=== PATIENT | female | born 1980 | race Caucasian/White ===

== ENCOUNTER 2016-10-22 13:48 | Emergency (ER) | payer OTHER, SELFPAY ==
[~2016-10-22] VITALS: Ht 162.6 cm; Wt 71.6 kg
[~2016-10-22 13:48] MED LIST: ACET300T PO; AMBI5TAB PO; EFFE75CA75 PO; IBUP80TA PO; ORTHDIS TD; XULA1DIS TD; [UNRECOGNIZED DRUG - CODE] PO; effexor xr PO
[2016-10-22] MEDS ORDERED: BENA25CA4 PO (13:57)
[2016-10-22] MEDS ORDERED: ULTR50TA8 PO (15:55)
--- NOTE | 2016-10-22 15:59 | REP ---
RIGHT LOWER EXTREMITY DUPLEX VEINS: HISTORY: Right leg swelling. There are no filling defects in the deep venous system. The deep venous system is patent. A fluid collection is present in the distal lateral thigh. This measures 12.1 x 3.7 x 4.5 cm and is most consistent with a hematoma. IMPRESSION: 1. There is no deep venous thrombosis. 2. There is a fluid collection in the distal lateral thigh measuring 12.1 cm in maximum dimension most consistent with a hematoma. Signed by Michael Myrick MD 10/22/2016 03:59 P
[2016-10-22 16:02] VITALS: BP 175/99
== END 2016-10-22 16:16 | disposition home or self-care (01) ==
LOC: M ED 13:48
DX: S80.11XA Contusion of right lower leg, initial encounter (principal); Y92.410 Unspecified street and highway as the place of occurrence of the external cause; Y93.89 Activity, other specified; Y99.8 Other external cause status; K58.9 Irritable bowel syndrome, unspecified; F41.9 Anxiety disorder, unspecified; F32.9 Major depressive disorder, single episode, unspecified; Z79.899 Other long term (current) drug therapy; Z88.8 Allergy status to other drugs, medicaments and biological substances

== ENCOUNTER 2016-12-01 14:02 | Emergency (ER) | payer MEDICAID, SELFPAY ==
[~2016-12-01] VITALS: Ht 162.6 cm; Wt 75.0 kg
[~2016-12-01 14:02] MED LIST changes: +BENA25CA4 PO; +ULTR50TA8 PO
[2016-12-01] MEDS ORDERED: IBUP-1022 PO (14:17)
[2016-12-01 16:29] LABS: BASO # 0.1 K/mm3 (0.0-0.2); EOS # 0.1 K/mm3 (0.0-0.50); EOS % 2.1 % (0.0-3.0); LARGE UNSTAINED CELL # 0.1 K/mm3 (0.0-0.4); LARGE UNSTAINED CELL % 1.6 % (0.0-4.0); LYMPH # 1.6 K/mm3 (1.5-4.5); LYMPH % 22.1 % (24.0-44.0); MEAN CORPUSCULAR HEMOGLOBIN 35.7 pg (27.0-33.0); MEAN CORPUSCULAR VOLUME 104.8 fl (80.0-96.0); MONO # 0.5 K/mm3 (0.0-0.8); MONO % 7.7 % (0.0-5.0); NEUTROPHILS # 4.4 K/mm3 (1.8-7.7); NEUTROPHILS % 65.6 % (36.0-66.0); PLATELET COUNT, AUTOMATED 172 k/mm3 (150-450); WHITE BLOOD COUNT 6.7 K/mm3 (4.0-10.0)
--- NOTE | 2016-12-01 16:48 | REP ---
Pelvic sonogram: History: Left-sided pelvic pain. Findings: Transabdominal and transvaginal scanning are performed. Uterine dimensions are normal at 6.3 x 3.3 x 4.5 cm. Endometrial echo 0.7 cm thick. No focal uterine mass is seen. There is a trace of cul-de-sac fluid. The right ovary dimensions are 2.9 x 2.0 x 3.1 cm. There is a paraovarian cyst in the right adnexa measuring 2.0 x 1.1 x 1.5 cm. The left ovary measures 3.0 x 2.3 x 3.0 cm. It contains a 2.2 cm follicle. Impression: 2.0 cm paraovarian cyst in the right adnexa. 2.2 cm dominant follicle cyst in the left ovary. Normal Doppler flow observed bilaterally in the ovaries. Otherwise negative. Signed by Kurt Holloway MD 12/01/2016 05:25 P
[2016-12-01 16:51] LABS: ANION GAP 9 MEQ/L (8-16); BLOOD UREA NITROGEN 9 MG/DL (7-18); CALCIUM LEVEL 9.1 MG/DL (8.5-10.1); CARBON DIOXIDE LEVEL 28 MEQ/L (21-32); CHLORIDE LEVEL 101 MEQ/L (98-107); GLOMERULAR FILTRATION RATE > 60.0 (>60); GLUCOSE, FASTING 103 MG/DL (70-105); POTASSIUM SERUM 4.2 MEQ/L (3.5-5.1); SODIUM LEVEL 138 MEQ/L (136-145)
[2016-12-01 17:37] VITALS: BP 152/96
[2016-12-05 00:07] LABS: Lyme Disease IgG/IgM Antibodie <0.91 ISR (0.00-0.90); Lyme Disease IgM Ab Quantitati <0.80 index (0.00-0.79)
== END 2016-12-01 17:39 | disposition home or self-care (01) ==
LOC: M ED 14:02
DX: M35.3 Polymyalgia rheumatica (principal); N83.02 Follicular cyst of left ovary; N83.291 Other ovarian cyst, right side; F41.9 Anxiety disorder, unspecified; F32.9 Major depressive disorder, single episode, unspecified; F17.200 Nicotine dependence, unspecified, uncomplicated; Z79.899 Other long term (current) drug therapy; Z88.8 Allergy status to other drugs, medicaments and biological substances

== ENCOUNTER → 2017-04-14 | Outpatient (CLI) | payer MEDICAID | LOC: M OUTALCOH 11:34 | DX: F10.10 Alcohol abuse, uncomplicated (principal) ==

== ENCOUNTER 2017-05-05 11:10 | Outpatient (RCR) | payer MEDICAID | END 2017-05-19 | LOC: M OUTALCOH 11:10 | DX: F10.10 Alcohol abuse, uncomplicated (principal); F17.200 Nicotine dependence, unspecified, uncomplicated ==

== ENCOUNTER 2017-05-24 09:56 | Outpatient (RCR) | payer MEDICAID | END 2017-06-19 | LOC: M OUTALCOH 05-25 16:00 | DX: F10.10 Alcohol abuse, uncomplicated (principal); F17.200 Nicotine dependence, unspecified, uncomplicated ==

== ENCOUNTER 2017-06-28 14:00 | Outpatient (RCR) | payer MEDICAID | END 2017-07-19 | LOC: M OUTALCOH 07-05 14:00 | DX: F10.10 Alcohol abuse, uncomplicated (principal); F17.200 Nicotine dependence, unspecified, uncomplicated ==

== ENCOUNTER → 2017-07-22 | Outpatient (REF) | payer OTHER ==
[2017-07-22 12:04] LABS: BASO % 0.5 % (0.0-1.0); EOS # 0.1 10^3/uL (0.0-0.50); EOS % 1.3 % (0.0-3.0); HEMATOCRIT 42.5 % (36.0-47.0); HEMOGLOBIN 14.6 g/dl (12.0-15.5); IMMATURE GRANULOCYTE % 0.6 % (0-3.0); LYMPH % 22.9 % (24.0-44.0); MEAN CORPUSCULAR HGB CONC 34.4 g/dl (32.0-36.5); MEAN CORPUSCULAR VOLUME 96.2 fl (80.0-96.0); MONO # 1.1 10^3/uL (0.0-0.8); MONO % 13.1 % (0.0-5.0); NEUTROPHILS # 5.3 10^3/uL (1.8-7.7); NEUTROPHILS % 61.6 % (36.0-66.0); PLATELET COUNT, AUTOMATED 221 10^3/uL (150-450); RED BLOOD COUNT 4.42 10^6/uL (4.00-5.40); RED CELL DISTRIBUTION WIDTH 13.4 % (11.5-14.5); WHITE BLOOD COUNT 8.6 10^3/uL (4.0-10.0)
[2017-07-22 12:29] LABS: ALBUMIN 4.1 GM/DL (3.2-5.2); ALBUMIN/GLOBULIN RATIO 1.11 (1.00-1.93); ALKALINE PHOSPHATASE 50 U/L (45-117); ALT/SGPT 17 U/L (12-78); ANION GAP 6 MEQ/L (8-16); AST/SGOT 13 U/L (7-37); BILIRUBIN,TOTAL 0.8 MG/DL (0.2-1.0); BLOOD UREA NITROGEN 12 MG/DL (7-18); CALCIUM LEVEL 9.1 MG/DL (8.5-10.1); CARBON DIOXIDE LEVEL 30 MEQ/L (21-32); CHLORIDE LEVEL 105 MEQ/L (98-107); CREATININE FOR GFR 0.73 MG/DL (0.55-1.30); GLOMERULAR FILTRATION RATE > 60.0 (>60); GLUCOSE, FASTING 91 MG/DL (70-100); POTASSIUM SERUM 4.1 MEQ/L (3.5-5.1); SODIUM LEVEL 141 MEQ/L (136-145); TOTAL PROTEIN 7.8 GM/DL (6.4-8.2)
== END ==
LOC: M SFHCPLAZ 10:23
DX: J06.9 Acute upper respiratory infection, unspecified (principal); I10 Essential (primary) hypertension

== ENCOUNTER 2017-07-26 08:42 | Outpatient (RCR) | payer MEDICAID | END 2017-08-19 | LOC: M OUTALCOH 07-27 16:00 | DX: F10.10 Alcohol abuse, uncomplicated (principal); F17.200 Nicotine dependence, unspecified, uncomplicated ==

== ENCOUNTER → 2017-08-24 | Outpatient (CLI) | payer MEDICAID | LOC: M WUC 13:14 | DX: S90.32XA Contusion of left foot, initial encounter (principal); X58.XXXA Exposure to other specified factors, initial encounter; Y92.9 Unspecified place or not applicable | CPT/HCPCS: 73630 ==

== ENCOUNTER 2017-08-30 10:40 | Outpatient (RCR) | payer MEDICAID | END 2017-09-18 | LOC: M OUTALCOH 09-15 10:00 | DX: F10.10 Alcohol abuse, uncomplicated (principal); F17.200 Nicotine dependence, unspecified, uncomplicated ==

== ENCOUNTER 2017-09-28 12:24 | Emergency (ER) | payer OTHER, MEDICAID ==
[2017-09-28] MEDS: METHOCARBAMOL 750 MG TAB PO (15:15)
[2017-09-28] MEDS: PERCOCET 5MG/325MG TAB PO (15:16)
== END 2017-09-28 16:19 | disposition home or self-care (01) ==
LOC: M ED 12:24
DX: M54.9 Dorsalgia, unspecified (principal); G89.29 Other chronic pain; F41.9 Anxiety disorder, unspecified; F32.9 Major depressive disorder, single episode, unspecified; K21.9 Gastro-esophageal reflux disease without esophagitis; K58.9 Irritable bowel syndrome, unspecified; F17.210 Nicotine dependence, cigarettes, uncomplicated; Z88.8 Allergy status to other drugs, medicaments and biological substances; Z79.899 Other long term (current) drug therapy
CPT/HCPCS: 99283

== ENCOUNTER 2017-09-29 11:20 | Outpatient (RCR) | payer MEDICAID | END 2017-10-19 | LOC: M OUTALCOH 10-13 10:00 | DX: F10.10 Alcohol abuse, uncomplicated (principal); F17.200 Nicotine dependence, unspecified, uncomplicated ==

== ENCOUNTER → 2017-10-19 | Outpatient (REF) | payer OTHER ==
[2017-10-19 13:09] LABS: BASO % 0.5 % (0.0-1.0); EOS # 0.1 10^3/uL (0.0-0.50); EOS % 1.5 % (0.0-3.0); HEMATOCRIT 45.3 % (36.0-47.0); HEMOGLOBIN 15.2 g/dl (12.0-15.5); IMMATURE GRANULOCYTE % 0.8 % (0-3.0); LYMPH # 1.6 10^3/uL (1.5-4.5); LYMPH % 24.3 % (24.0-44.0); MEAN CORPUSCULAR HEMOGLOBIN 34.1 pg (27.0-33.0); MEAN CORPUSCULAR HGB CONC 33.6 g/dl (32.0-36.5); MEAN CORPUSCULAR VOLUME 101.6 fl (80.0-96.0); MONO # 0.8 10^3/uL (0.0-0.8); MONO % 12.3 % (0.0-5.0); NEUTROPHILS % 60.6 % (36.0-66.0); PLATELET COUNT, AUTOMATED 167 10^3/uL (150-450); RED BLOOD COUNT 4.46 10^6/uL (4.00-5.40); RED CELL DISTRIBUTION WIDTH 12.2 % (11.5-14.5); RETIC HEMOGLOBIN EQUIVALENT 39.6 pg (24-36); RETICULOCYTE # 50.8 10^9/L (17-77); RETICULOCYTE % 1.1 % (0.5-1.5); WHITE BLOOD COUNT 6.6 10^3/uL (4.0-10.0)
[2017-10-19 13:19] LABS: HEMATOCRIT 45.3 % (36.0-47.0)
[2017-10-19 13:29] LABS: TOTAL 25(OH) VITAMIN D 31.4 NG/ML (30.0-100.0)
[2017-10-19 13:30] LABS: VITAMIN B12 LEVEL 337 PG/ML (247-911)
[2017-10-19 13:35] LABS: ALBUMIN 3.6 GM/DL (3.2-5.2); ALBUMIN/GLOBULIN RATIO 1.03 (1.00-1.93); ALKALINE PHOSPHATASE 50 U/L (45-117); ALT/SGPT 52 U/L (12-78); ANION GAP 10 MEQ/L (8-16); AST/SGOT 31 U/L (7-37); BILIRUBIN,TOTAL 0.7 MG/DL (0.2-1.0); BLOOD UREA NITROGEN 6 MG/DL (7-18); CALCIUM LEVEL 8.9 MG/DL (8.5-10.1); CARBON DIOXIDE LEVEL 27 MEQ/L (21-32); CHLORIDE LEVEL 104 MEQ/L (98-107); CREATININE FOR GFR 0.63 MG/DL (0.55-1.30); FERRITIN 143 NG/ML (8-252); GLOMERULAR FILTRATION RATE > 60.0 (>60); GLUCOSE, FASTING 88 MG/DL (70-100); MAGNESIUM LEVEL 2.1 MG/DL (1.8-2.4); SODIUM LEVEL 141 MEQ/L (136-145); TOTAL PROTEIN 7.1 GM/DL (6.4-8.2)
[2017-10-19 13:44] LABS: ESTIMATED AVERAGE GLUCOSE 108 MG/DL (60-110); HEMOGLOBIN A1c 5.4 %
[2017-10-19 15:00] LABS: PRETREATED FOLATE FOR RBCFOL 12.4 NG/ML; RBC FOLATE 574.8 NG/ML (280-791)
[2017-10-20 14:17] LABS: INSULIN LEVEL 9.5 uIU/mL (2.6-24.9)
== END ==
LOC: M SFHCPLAZ 10:58
DX: G47.61 Periodic limb movement disorder (principal); E55.9 Vitamin D deficiency, unspecified

== ENCOUNTER 2017-12-02 14:00 | Outpatient (RCR) | payer MEDICAID | END 2017-12-19 | LOC: M OUTALCOH 12-07 09:00 | DX: F10.10 Alcohol abuse, uncomplicated (principal); F17.200 Nicotine dependence, unspecified, uncomplicated ==

== ENCOUNTER → 2017-12-09 | Outpatient (REF) | payer OTHER ==
[2017-12-09 16:20] LABS: ALBUMIN 3.5 GM/DL (3.2-5.2); ALBUMIN/GLOBULIN RATIO 1.03 (1.00-1.93); ALKALINE PHOSPHATASE 45 U/L (45-117); ALT/SGPT 18 U/L (12-78); ANION GAP 8 MEQ/L (8-16); AST/SGOT 13 U/L (7-37); BILIRUBIN,TOTAL 0.3 MG/DL (0.2-1.0); BLOOD UREA NITROGEN 7 MG/DL (7-18); CALCIUM LEVEL 8.7 MG/DL (8.5-10.1); CARBON DIOXIDE LEVEL 27 MEQ/L (21-32); CHLORIDE LEVEL 106 MEQ/L (98-107); CREATININE FOR GFR 0.83 MG/DL (0.55-1.30); FREE T4 0.82 NG/DL (0.76-1.46); GLOMERULAR FILTRATION RATE > 60.0 (>60); GLUCOSE, FASTING 92 MG/DL (70-100); MAGNESIUM LEVEL 1.7 MG/DL (1.8-2.4); NT-PRO BNP 66 PG/ML (<125); POTASSIUM SERUM 4.2 MEQ/L (3.5-5.1); SODIUM LEVEL 141 MEQ/L (136-145); THYROID STIMULATING HORMONE 0.749 uIU/ML (0.358-3.740); TOTAL PROTEIN 6.9 GM/DL (6.4-8.2)
[2017-12-11 12:59] LABS: H PYLORI SERUM QUANT IgG ABY 0.14 (0.00-0.79)
== END ==
LOC: M SFHCPLAZ 13:19
DX: M47.816 Spondylosis without myelopathy or radiculopathy, lumbar region (principal); E53.8 Deficiency of other specified B group vitamins; I10 Essential (primary) hypertension

== ENCOUNTER 2017-12-20 14:52 | Outpatient (RCR) | payer MEDICAID | END 2018-01-19 | LOC: M OUTALCOH 12-22 08:45 | DX: F10.20 Alcohol dependence, uncomplicated (principal); F17.200 Nicotine dependence, unspecified, uncomplicated ==

== ENCOUNTER 2018-01-21 11:04 | Outpatient (RCR) | payer MEDICAID | END 2018-02-18 | LOC: M OUTALCOH 11:04 | DX: F10.20 Alcohol dependence, uncomplicated (principal); F17.200 Nicotine dependence, unspecified, uncomplicated ==

== ENCOUNTER 2018-01-28 09:46 | Day surgery (SDC) | payer OTHER ==
[~2018-01-28 09:46] MED LIST changes: -ACET300T PO; -AMBI5TAB PO; -BENA25CA4 PO; -EFFE75CA75 PO; -IBUP80TA PO; +LIDOCAINE 1% MDV 20ML VIAL SQ; +LR 1,000 ML IV; -ORTHDIS TD; -ULTR50TA8 PO; -XULA1DIS TD; -[UNRECOGNIZED DRUG - CODE] PO; -effexor xr PO
[2018-01-28 10:13] LABS: HEMATOCRIT 40.6 % (36.0-47.0); HEMOGLOBIN 13.6 g/dl (12.0-15.5); MEAN CORPUSCULAR HEMOGLOBIN 32.2 pg (27.0-33.0); MEAN CORPUSCULAR HGB CONC 33.5 g/dl (32.0-36.5); PLATELET COUNT, AUTOMATED 287 10^3/uL (150-450); RED BLOOD COUNT 4.23 10^6/uL (4.00-5.40); RED CELL DISTRIBUTION WIDTH 12.1 % (11.5-14.5); WHITE BLOOD COUNT 8.6 10^3/uL (4.0-10.0)
[2018-01-28 10:38] LABS: CONTROL LINE HCG INT CTR LINE PRESENT; HCG, SERUM QUALITATIVE NEGATIVE (NEGATIVE)
[2018-01-28] MEDS ORDERED: ROCURONIUM BROMIDE 50 MG/5 ML VIAL As Ordered (13:33)
[2018-01-28] MEDS ORDERED: dexameTHASONE 4 MG/ML 1ML VIAL (J1100) As Ordered (13:33)
[2018-01-28] MEDS ORDERED: fentaNYL 250 MCG/5 ML INJECTION (J3010) As Ordered (13:33)
[2018-01-28] MEDS ORDERED: ONDANSETRON 4MG/2ML VIAL (J2405) As Ordered (13:33)
[2018-01-28] MEDS ORDERED: MIDAZOLAM INJ 2 MG/2 ML VIAL (J2250) As Ordered (13:33)
[2018-01-28] MEDS ORDERED: HYDROmorphone HCL 2 MG/ML 1ML VIAL (J1170) As Ordered (13:33)
[2018-01-28] MEDS ORDERED: KETOROLAC 60 MG/2 ML VIAL (J1885) As Ordered (13:33)
[2018-01-28] MEDS ORDERED: LIDOCAINE 2% INJ 100 MG/5 ML SDV (FOR ANES.) As Ordered (13:33)
[2018-01-28] MEDS ORDERED: NEOSTIGMINE 10 MG/10 ML VIAL (J2710) As Ordered (13:33)
[2018-01-28] MEDS ORDERED: GLYCOPYRROLATE INJ 0.2 MG/ML 2 ML VIAL As Ordered (13:33)
[2018-01-28] MEDS ORDERED: PROPOFOL 200 MG/20 ML VIAL As Ordered ×2 (13:33→15:20)
[2018-01-28] MEDS: METHYLENE BLUE 0.5% (5MG/ML) 10 ML AMP (PROVAYBLUE)(Q9968 PER 1MG) As Ordered (14:44)
[2018-01-28] MEDS: BUPIVACAINE HCL 0.25% 30 ML VIAL As Ordered (15:27)
[2018-01-28] MEDS ORDERED: ONDANSETRON 4MG/2ML VIAL (J2405) IV ×2 (15:45→16:15)
[2018-01-28] MEDS ORDERED: PROMETHAZINE INJ 25 MG/ML VIAL (J2550) IV (15:45)
[2018-01-28] MEDS ORDERED: traZODone 100 MG TAB PO (15:45)
[2018-01-28] MEDS: LR 1,000 ML IV ×2 (16:15→18:21)
[2018-01-28] MEDS: fentaNYL 100 MCG/2 ML INJECTION (J3010) IV ×4 (16:35→16:50)
[2018-01-28] MEDS: PERCOCET 5MG/325MG TAB PO (16:35)
[2018-01-28] MEDS: CYCLOBENZAPRINE 10 MG TAB PO ×2 (18:20→21:49)
[2018-01-28] MEDS: GABAPENTIN 300 MG CAP PO ×2 (18:21→21:49)
[2018-01-28] MEDS: KETOROLAC 30 MG/ML VIAL (J1885) IV (20:50)
[2018-01-28] MEDS: risperiDONE 2 MG TAB PO (21:49)
[2018-01-28] MEDS: DOCUSATE SODIUM 100 MG CAP PO (21:49)
[2018-01-29] MEDS: LR 1,000 ML IV (01:06)
[2018-01-29] MEDS: KETOROLAC 30 MG/ML VIAL (J1885) IV ×2 (01:06→08:06)
[2018-01-29] MEDS: PERCOCET 5MG/325MG TAB PO ×2 (04:03→09:25)
[2018-01-29 06:10] LABS: BASO % 0.2 % (0.0-1.0); EOS % 0.3 % (0.0-3.0); HEMATOCRIT 34.6 % (36.0-47.0); IMMATURE GRANULOCYTE % 0.4 % (0-3.0); LYMPH % 15.4 % (24.0-44.0); MEAN CORPUSCULAR HEMOGLOBIN 32.2 pg (27.0-33.0); MEAN CORPUSCULAR HGB CONC 33.2 g/dl (32.0-36.5); MEAN CORPUSCULAR VOLUME 96.9 fl (80.0-96.0); MONO # 1.3 10^3/uL (0.0-0.8); MONO % 9.6 % (0.0-5.0); NEUTROPHILS # 9.6 10^3/uL (1.8-7.7); NEUTROPHILS % 74.1 % (36.0-66.0); PLATELET COUNT, AUTOMATED 250 10^3/uL (150-450); RED BLOOD COUNT 3.57 10^6/uL (4.00-5.40)
[2018-01-29 06:53] LABS: HEMOGLOBIN 11.5 g/dl (12.0-15.5)
[2018-01-29] MEDS: OMEPRAZOLE 20 MG CAP PO (08:06)
[2018-01-29] MEDS: CitaloPRAM (CeleXA) 20 MG TAB PO (08:06)
[2018-01-29] MEDS: CYCLOBENZAPRINE 10 MG TAB PO (08:06)
[2018-01-29] MEDS: GABAPENTIN 300 MG CAP PO (08:06)
[2018-01-29] MEDS: LISINOPRIL *2.5 MG* TAB PO (08:07)
[2018-01-29] MEDS: DOCUSATE SODIUM 100 MG CAP PO (08:07)
[2018-01-29] MEDS: CYANOCOBALAMIN 500 MCG TAB PO (08:07)
[2018-01-29] MEDS ORDERED: IBUPROFEN 800 MG TAB PO (22:00)
== END 2018-01-29 13:17 | disposition home or self-care (01) ==
LOC: M SDC 09:46 → M MSPAV 17:35
DX: N94.6 Dysmenorrhea, unspecified (principal); N83.291 Other ovarian cyst, right side; N80.0 Endometriosis of uterus; I10 Essential (primary) hypertension; F41.9 Anxiety disorder, unspecified; F32.9 Major depressive disorder, single episode, unspecified; Z88.8 Allergy status to other drugs, medicaments and biological substances; Z79.899 Other long term (current) drug therapy; Z72.0 Tobacco use; Z98.51 Tubal ligation status
CPT/HCPCS: 58571

== ENCOUNTER → 2018-03-09 | Outpatient (CLI) | payer OTHER ==
[~2018-03-09] MED LIST changes: +ACET300T PO; +AMBI5TAB PO; +BENA25CA4 PO; +CELE40TA PO; +COLA100C5 PO; +CYCL10TA PO; +EFFE75CA2 PO; +GABA600T PO; +IBUP-1022 PO; +IBUP80TA PO; -LIDOCAINE 1% MDV 20ML VIAL SQ; +LISI-542 PO; +LISI2.5T5; +LISI2.5T5 PO; -LR 1,000 ML IV; +MELO15TA28 PO; +NALT50TA4 PO; +OMEP40CA2 PO; +ORTHDIS TD; +PERC5TAB12 PO; +PERCOCET PO; +RISP3TAB20 PO; +RISP4TAB33 PO; +ROBA500T PO; +TRAZ10TA PO; +ULTR50TA8 PO; +VITA500T3 PO; +XULA1DIS TD; +ZOFR4TAB14 SL; +[UNRECOGNIZED DRUG - CODE] PO; +effexor xr PO
--- NOTE | 2018-03-11 14:27 | SLEEPHOME ---
DATE OF PROCEDURE: 03/09/2018 ORDERED BY: Dr. Chaudhari Diagnostic home sleep testing was performed due to concern for the obstructive sleep apnea syndrome. For testing, a nocturnal T3 respiratory monitoring device was used. Continuous record was made of pulse, oxygen saturation, airflow, chest and abdominal strain and body position. 9 hours and 59 minutes of data were reviewed. Of these, 9 hours and 18 minutes marked as time in bed. During the interval marked time in bed, there were 29 respiratory events identified of 10 seconds in duration or greater for a respiratory event index of 3.1. The events were associated with the supine position and were predominantly hypopneic. Baseline pulse rate was 87 beats per minute. Pulse rate ranged from 70 to 103. Baseline saturation was 93%. There was 1 episode of desaturation to 85% with an oxygen desaturation index of 0.8. Testing was performed in both the supine and nonsupine positions. IMPRESSION: Borderline diagnostic home sleep testing with some respiratory patterning. RECOMMENDATION: Information sent with the order for the test suggests concern over the possibility of a periodic limb movement disorder. It should be noted that limb movement activity is not monitored as a part of home sleep testing. In-lab nocturnal polysomnography does monitor limb activity. In regard to the respiratory events, they appeared mild and positional and sleep position retraining for avoidance of the supine posture may be somewhat helpful. JEANAD
== END ==
LOC: M SLEEP HO 11:49
PROVIDERS: ATTEND Family Medicine
DX: G47.61 Periodic limb movement disorder (principal)

== ENCOUNTER → 2018-05-31 | Outpatient (CLI) | payer MEDICAID ==
[~2018-05-31] MED LIST changes: -GABA600T PO; +GABA600T4 PO
== END ==
LOC: M OUTALCOH 07:55
PROVIDERS: ATTEND Psychiatry & Neurology Psychiatry
DX: F10.20 Alcohol dependence, uncomplicated (principal)

== ENCOUNTER 2018-06-17 07:54 | Outpatient (RCR) | payer MEDICAID | END 2018-06-19 | LOC: M OUTALCOH 07:54 | PROVIDERS: ATTEND Psychiatry & Neurology Psychiatry | DX: F10.20 Alcohol dependence, uncomplicated (principal); F17.200 Nicotine dependence, unspecified, uncomplicated ==

== ENCOUNTER → 2018-07-19 | Outpatient (RCR) | payer MEDICAID ==
[~2018-07-19] MED LIST changes: +LISI-1046; +LISI-1046 PO; -LISI2.5T5; -LISI2.5T5 PO
== END ==
LOC: M OUTALCOH 06-21 14:04
PROVIDERS: ATTEND Psychiatry & Neurology Psychiatry
DX: F10.20 Alcohol dependence, uncomplicated (principal); F17.200 Nicotine dependence, unspecified, uncomplicated

== ENCOUNTER 2018-08-18 10:58 | Outpatient (RCR) | payer MEDICAID | END 2018-08-19 | LOC: M OUTALCOH 10:58 | PROVIDERS: ATTEND Psychiatry & Neurology Psychiatry | DX: F10.20 Alcohol dependence, uncomplicated (principal); F17.200 Nicotine dependence, unspecified, uncomplicated ==

== ENCOUNTER 2018-09-15 11:00 | Outpatient (RCR) | payer MEDICAID | END 2018-09-18 | LOC: M OUTALCOH 11:00 | PROVIDERS: ATTEND Psychiatry & Neurology Psychiatry | DX: F10.20 Alcohol dependence, uncomplicated (principal); F17.200 Nicotine dependence, unspecified, uncomplicated ==

== ENCOUNTER → 2018-09-27 | Outpatient (REF) | payer OTHER ==
[~2018-09-27] MED LIST changes: +CYAN500T8 PO; -VITA500T3 PO
== END ==
LOC: M SFHCPLAZ 11:54
PROVIDERS: ATTEND Family Medicine
DX: E53.8 Deficiency of other specified B group vitamins (principal); E66.9 Obesity, unspecified

== ENCOUNTER → 2018-09-29 | Outpatient (REF) | payer OTHER ==
[2018-09-29 12:47] LABS: BASO # 0.1 10^3/uL (0.0-0.2); BASO % 0.6 % (0.0-1.0); EOS # 0.2 10^3/uL (0.0-0.50); HEMOGLOBIN 16.1 g/dl (12.0-15.5); LYMPH # 2.3 10^3/uL (1.5-4.5); LYMPH % 27.7 % (24.0-44.0); MEAN CORPUSCULAR HEMOGLOBIN 32.4 pg (27.0-33.0); MEAN CORPUSCULAR HGB CONC 33.5 g/dl (32.0-36.5); MEAN CORPUSCULAR VOLUME 96.6 fl (80.0-96.0); MONO # 0.8 10^3/uL (0.0-0.8); MONO % 9.6 % (0.0-5.0); NEUTROPHILS # 5.1 10^3/uL (1.8-7.7); NEUTROPHILS % 59.9 % (36.0-66.0); PLATELET COUNT, AUTOMATED 261 10^3/uL (150-450); RED BLOOD COUNT 4.97 10^6/uL (4.00-5.40); WHITE BLOOD COUNT 8.4 10^3/uL (4.0-10.0)
[2018-09-29 12:58] LABS: ALBUMIN 4.1 GM/DL (3.2-5.2); ALT/SGPT 19 U/L (12-78); BILIRUBIN,TOTAL 0.4 MG/DL (0.2-1.0); BLOOD UREA NITROGEN 8 MG/DL (7-18); CALCIUM LEVEL 9.4 MG/DL (8.5-10.1); CARBON DIOXIDE LEVEL 30 MEQ/L (21-32); CHLORIDE LEVEL 106 MEQ/L (98-107); CHOLESTEROL LEVEL 194 MG/DL (<200); CHOLESTEROL RISK RATIO 3.803 (<5); CREATININE FOR GFR 0.85 MG/DL (0.55-1.30); GLOMERULAR FILTRATION RATE > 60.0 (>60); GLUCOSE, FASTING 92 MG/DL (70-100); HDL CHOLESTEROL 51 MG/DL (>40); LDL CHOLESTEROL 121 MG/DL (<100); NON-HDL-C 143 MG/DL; POTASSIUM SERUM 4.3 MEQ/L (3.5-5.1); SODIUM LEVEL 140 MEQ/L (136-145); TOTAL PROTEIN 7.4 GM/DL (6.4-8.2); TRIGLYCERIDES LEVEL 112 MG/DL (<150)
[2018-09-29 13:04] LABS: VITAMIN B12 LEVEL 480 PG/ML (247-911)
[2018-09-29 13:08] LABS: HEMOGLOBIN A1c 5.7 %
== END ==
LOC: M SFHCPLAZ 08:27
PROVIDERS: ATTEND Family Medicine
DX: E53.8 Deficiency of other specified B group vitamins (principal); E66.9 Obesity, unspecified

== ENCOUNTER → 2018-10-04 | Outpatient (REF) | payer OTHER ==
[2018-10-04 15:36] LABS: INR 1.03; PROTHROMBIN TIME 13.2 SECONDS (11.8-14.0)
[2018-10-04 15:37] LABS: PARTIAL THROMBOPLASTIN TIME 29.6 SECONDS (25.0-38.4)
== END ==
LOC: M LABDRAW1 11:44
PROVIDERS: ATTEND Physician Assistant
DX: Z01.818 Encounter for other preprocedural examination (principal)

== ENCOUNTER 2018-10-17 16:00 | Outpatient (RCR) | payer MEDICAID | END 2018-10-19 | LOC: M OUTALCOH 16:00 | PROVIDERS: ATTEND Psychiatry & Neurology Psychiatry | DX: F10.20 Alcohol dependence, uncomplicated (principal) ==

== ENCOUNTER 2018-11-14 16:00 | Outpatient (RCR) | payer MEDICAID | END 2018-11-19 | LOC: M OUTALCOH 16:00 | PROVIDERS: ATTEND Psychiatry & Neurology Psychiatry | DX: F10.20 Alcohol dependence, uncomplicated (principal); F17.200 Nicotine dependence, unspecified, uncomplicated ==

== ENCOUNTER 2018-12-15 16:00 | Outpatient (RCR) | payer MEDICAID | END 2018-12-19 | LOC: M OUTALCOH 16:00 | PROVIDERS: ATTEND Psychiatry & Neurology Psychiatry | DX: F10.20 Alcohol dependence, uncomplicated (principal) ==

== ENCOUNTER 2019-01-12 11:00 | Outpatient (RCR) | payer MEDICAID ==
[~2019-01-12 11:00] MED LIST changes: -OMEP40CA2 PO; +OMEP40CA97 PO
== END 2019-01-19 ==
LOC: M OUTALCOH 11:00
PROVIDERS: ATTEND Psychiatry & Neurology Psychiatry
DX: F10.20 Alcohol dependence, uncomplicated (principal); F17.200 Nicotine dependence, unspecified, uncomplicated

== ENCOUNTER 2019-02-28 15:40 | Inpatient (IN) | payer MEDICAID, OTHER ==
[~2019-02-28] VITALS: Ht 162.6 cm; Wt 83.2 kg
[2019-02-28] MEDS ORDERED: NICOTINE 21MG/24HR 1 EA TRANSDERMAL TD ONE (16:00)
[2019-02-28 17:02] LABS: HEMATOCRIT 54.6 % (36.0-47.0); HEMOGLOBIN 18.2 g/dl (12.0-15.5); MEAN CORPUSCULAR HEMOGLOBIN 30.4 pg (27.0-33.0); MEAN CORPUSCULAR HGB CONC 33.3 g/dl (32.0-36.5); MEAN CORPUSCULAR VOLUME 91.3 fl (80.0-96.0); PLATELET COUNT, AUTOMATED 330 10^3/uL (150-450); RED BLOOD COUNT 5.98 10^6/uL (4.00-5.40); WHITE BLOOD COUNT 9.6 10^3/uL (4.0-10.0)
[2019-02-28 17:13] LABS: HCG, SERUM QUALITATIVE NEGATIVE (NEGATIVE)
[2019-02-28 17:24] LABS: ACETAMINOPHEN LEVEL < 2.0 UG/ML (10.0-30.0); ALBUMIN 4.1 GM/DL (3.2-5.2); ALT/SGPT 44 U/L (12-78); BILIRUBIN,DIRECT 0.2 MG/DL (0.0-0.2); BILIRUBIN,TOTAL 0.4 MG/DL (0.2-1.0); BLOOD UREA NITROGEN 8 MG/DL (7-18); CALCIUM LEVEL 9.4 MG/DL (8.5-10.1); CARBON DIOXIDE LEVEL 25 MEQ/L (21-32); CHLORIDE LEVEL 103 MEQ/L (98-107); ETHYL ALCOHOL (ETHANOL) 0.196 % (0.000-0.010); GLOMERULAR FILTRATION RATE > 60.0 (>60); GLUCOSE, FASTING 120 MG/DL (70-100); POTASSIUM SERUM 4.1 MEQ/L (3.5-5.1); SALICYLATE LEVEL 4.9 MG/DL (5.0-30.0); SODIUM LEVEL 140 MEQ/L (136-145); TOTAL PROTEIN 8.3 GM/DL (6.4-8.2)
[2019-02-28] MEDS ORDERED: RISP3TAB3 PO (18:32)
[2019-02-28] MEDS ORDERED: TRAZ-189 PO (18:32)
[2019-02-28] MEDS ORDERED: IBUP200C28 PO (18:32)
[2019-02-28] MEDS ORDERED: CYCL10TA PO (18:32)
[2019-02-28] MEDS ORDERED: BUPR15TASR PO (18:32)
[2019-02-28] MEDS ORDERED: CELE1CAP4 PO (18:32)
[2019-02-28 19:31] LABS: AMPHETAMINES LEVEL URINE NEGATIVE (NEGATIVE); BARBITURATES URINE NEGATIVE (NEGATIVE); BENZODIAZEPINES URINE NEGATIVE (NEGATIVE); CANNABINOIDS URINE NEGATIVE (NEGATIVE); COCAINE METABOLITE URINE NEGATIVE (NEGATIVE); METHADONE URINE NEGATIVE (NEGATIVE); OPIATES URINE NEGATIVE (NEGATIVE); PHENCYCLIDINE URINE NEGATIVE (NEGATIVE)
[2019-02-28] MEDS ORDERED: LORazepam 2 MG/ML VIAL (J2060) IM STA (22:33)
[2019-02-28] MEDS ORDERED: LORazepam 2 MG TAB PO PRN (22:45)
[2019-02-28] MEDS ORDERED: OXAZEPAM 15 MG CAP PO ONE (22:45)
[2019-02-28] MEDS: THIAMINE 100 MG TAB PO SCH (22:53)
[2019-03-01] MEDS ORDERED: FOLIC ACID 1 MG TAB PO SCH (09:00)
[2019-03-01] MEDS ORDERED: MULTIVITAMINS/MINERALS THERAP 1 TAB PO SCH (09:00)
[2019-03-01] MEDS: THIAMINE 100 MG TAB PO SCH ×2 (09:20→20:47)
--- NOTE | 2019-03-01 11:12 | ECGEPIP ---
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
[2019-03-01] MEDS ORDERED: LORazepam 2 MG TAB PO PRN (13:45)
[2019-03-01] MEDS ORDERED: ACETAMINOPHEN TAB 650MG DOSE (2X325MG) PO PRN (13:45)
--- NOTE | 2019-03-01 14:44 | HPEPDOC ---
General Date of Admission 03/01/2019 Date of Service: Mar 01, 2019 Attending Physician: HECTOR LUONG MD Chief Complaint The patient is a 38-year-old female admitted with a reason for visit of Psych Problem. Source: Patient Exam Limitations: No limitations Timing/Duration: Getting worse Severity: Moderate Associated Symptoms: Diaphoresis History of Present Illness 38 yo W with a history of bipolar, depression, anxiety, PTSD and PSUD who presented with suicidal ideation in the setting alcohol intoxication reporting having gone off her psych meds and being loss to follow up with psychiatry for the last 2 months and requesting psychiatric evaluation as she feels that if she does not seek help at this time she will not make it until her next scheduled appointment. She was seen in the ED on 02/28 and was being managed for alcohol withdrawal with the intention for eventual [facility] admission once her alcohol withdrawal had resolved but she continues to have symptoms and will therefore now be admitted to medicine to manage her alcohol withdrawal before she can be cleared for IMHU admission. Her initial CBC and BMP were within normal limits while tox screen was initially positive for ethyl alcohol level of 0.196 at presentation that has since normalized. Home Medications Scheduled Bupropion HCl (Bupropion HCl Sr) 150 Mg Tab.er.12h, 150 MG PO DAILY, (Reported) HAS BEEN OUT FOR 2 MONTHS Celecoxib (Celebrex) 200 Mg Capsule, 200 MG PO BID, (Reported) HAS BEEN OUT FOR 2 MONTHS Cyclobenzaprine HCl (Cyclobenzaprine HCl) 10 Mg Tablet, 10 MG PO TID, (Reported) HAS BEEN OUT FOR 2 MONTHS Risperidone (Risperidone) 3 Mg Tablet, 3 MG PO BID, (Reported) HAS BEEN OUT FOR 2 MONTHS Trazodone HCl (Trazodone HCl) 100 Mg Tablet, 100 MG PO QHS, (Reported) HAS BEEN OUT FOR 2 MONTHS Scheduled PRN Ibuprofen (Ibuprofen) 200 Mg Capsule, 800 MG PO QID PRN for PAIN, (Reported) Allergies Coded Allergies: sertraline (Verified Allergy, Severe, increased s/i, 02/28/19) Past Medical History Medical History bipolar, depression, anxiety, and PTSD Surgical History None Family History Significant Family History: No pertinent family hx Social History * Smoker: current smoker (1 ppd) Alcohol: heavy Drugs: denies Recent Travel/Sick Contacts: Denies: Recent travel, Recent sick contacts Psychosocial History: Anxiety, Bipolar, Decreased mood, Depression, Emotional problems, Suicidal thoughts Lives with 21 yo daughter. Supportive family lives close by, however patient has been withdrawn recently. A-FIB/CHADSVASC A-FIB History Current/History of A-Fib/PAF?: No Current PO Anticoag Therapy: No Age/Risk Factor Scoring CHADSVASC: CHADSVASC Response (Comments) Value Age Risk Factor Age < 65 years old 0 Gender Risk Factor Female 1 Hx of CHF No 0 Hx of HTN No 0 Hx of Stroke/TIA/or VTE No 0 Hx of Diabetes No 0 Hx of Vascular Disease No 0 Total 1 Treatment Treatment ordered: NONE Reason Anticoagulant not given: Not indicated/[id number] Review of Systems Constitutional: Reports: Night Sweats (having sweats in general not nightly.); Denies: Chills, Fever, Malaise, Weakness, Fatigue, Weight Loss, Lethargy, Other Eyes: Denies: Pain, Vision change ENT: Denies: Head Aches, Ear Pain, Dysphagia Skin: Denies: Rash, Lesions, Breakdown Pulmonary: Denies: Dyspnea, Cough Cardiovascular: Denies: Chest Pain, Palpitations, Orthopnea, Paroxysmal Noc. Dyspnea, Lt Headedness Gastrointestinal: Denies: Nausea, Vomiting, Abdominal Pain, Diarrhea Genitourinary: Denies: Dysuria, Frequency, Incontinence, Retention Hematologic: Denies: Bruising, Bleeding Excessively Endocrine: Denies: Polydipsia, Polyphagia, Polyuria, Heat Intolerance, Cold Intolerance, Other Endocrine Sx Musculoskeletal: Denies: Neck Pain, Back Pain, Joint Pain, Muscle Pain, Spasms Neurological: Denies: Weakness, Numbness, Change in speech, Confusion Psych: Reports: Anxiety (feels jittery and shaky inside), Depression, Thoughts of Self Harm; Denies: Mood Normal (depressed mood) Physical Examination General Exam: Positive: Alert, No Acute Distress Eye Exam: Positive: PERRLA, Conjunctiva & lids normal, EOMI; Negative: Sclera icteric ENT Exam: Positive: Atraumatic, Mucous membr. moist/pink, Pharynx Normal Neck Exam: Positive: Supple; Negative: JVD, thyromegaly Chest Exam: Positive: Clear to auscultation, Normal air movement Heart Exam: Positive: Rate Normal, Regular Rhythm, Normal S1, Normal S2; Negative: Murmurs, Rubs Abdomen Exam: Positive: Normal bowel sounds, Soft; Negative: Tenderness, Hepatospenomegaly Extremity Exam: Positive: Normal pulses; Negative: Clubbing, Cyanosis, Edema Skin Exam: Positive: Other skin issue (warm, flushed, sweaty); Negative: Rash, Breakdown, Lesion, Pruritus Neuro Exam: Positive: Normal Gait, Normal Speech, Cranial Nerves 3-12 NL, Reflexes 2+ Psych Exam: Positive: Mental status NL, Memory Intact, Oriented x 3 Vital Signs Vital Signs Date Time Temp Pulse Resp B/P (MAP) Pulse Ox O2 Delivery O2 Flow Rate FiO2 03/01/19 13:20 99 140/87 03/01/19 13:02 97.9 16 03/01/19 05:57 100 Room Air Laboratory Data Labs 24H Laboratory Tests 2 02/28/19 16:31: Nucleated Red Blood Cells % (auto) 0.0, Anion Gap 12, Glomerular Filtration Rate > 60.0, Calcium Level 9.4, Total Bilirubin 0.4, Direct Bilirubin 0.2, Aspartate Amino Transf (AST/SGOT) 35, Alanine Aminotransferase (ALT/SGPT) 44, Alkaline Phosphatase 62, Total Protein 8.3H, Albumin 4.1, Albumin/Globulin Ratio 0.98L, Thyroid Stimulating Hormone (TSH) 1.320, Human Chorionic Gonadotropin, Qual NEGATIVE, Salicylates Level 4.9L, Urine Opiates Screen NEGATIVE, Urine Methadone Screen NEGATIVE, Acetaminophen Level < 2.0L, Urine Barbiturates Screen NEGATIVE, Urine Phencyclidine Screen NEGATIVE, Urine Amphetamines Screen NEGATIVE, Urine Benzodiazepines Screen NEGATIVE, Urine Cocaine Metabolite Screen NEGATIVE, Urine Cannabinoids Screen NEGATIVE, Ethyl Alcohol Level 0.196H 03/01/19 00:22: Ethyl Alcohol Level < 0.003 CBC/BMP Laboratory Tests 02/28/19 16:31 Assessment/Plan 38 yo W with a history of bipolar, depression, anxiety, PTSD and PSUD who presented with suicidal ideation in the setting alcohol intoxication now c/b withdrawal now being admitted to medicine for management of alcohol withdrawal with plan for eventual psychiatry evaluation and likely admission to the [facility]. Alcohol withdrawal: -CIWA protocol with ativan -Thiamine -Folate Suicidal ideation: -1:1 sitter -psych consult DVT ppx: lovenox 40 QD Diet: regular Dispo: medicine until withdrawal resolves Plan / VTE VTE Prophylaxis Ordered?: Yes HECTOR LUONG MD Mar 01, 2019 14:44
[2019-03-01 15:15] VITALS: BP 156/99
[2019-03-01 15:42] VITALS: BP 156/99
[2019-03-01 20:48] VITALS: BP 128/88
[2019-03-01 22:00] VITALS: BP_SYST 130; BP_SYST 147; BP_DIAS 85
[2019-03-02 06:00] VITALS: BP 117/76
[2019-03-02 06:16] LABS: HEMATOCRIT 50.1 % (36.0-47.0); HEMOGLOBIN 16.7 g/dl (12.0-15.5); MEAN CORPUSCULAR HEMOGLOBIN 30.3 pg (27.0-33.0); MEAN CORPUSCULAR HGB CONC 33.3 g/dl (32.0-36.5); MEAN CORPUSCULAR VOLUME 90.9 fl (80.0-96.0); PLATELET COUNT, AUTOMATED 229 10^3/uL (150-450); RED BLOOD COUNT 5.51 10^6/uL (4.00-5.40); WHITE BLOOD COUNT 6.6 10^3/uL (4.0-10.0)
[2019-03-02 06:50] LABS: ALBUMIN 3.5 GM/DL (3.2-5.2); ALT/SGPT 40 U/L (12-78); BILIRUBIN,TOTAL 1.3 MG/DL (0.2-1.0); BLOOD UREA NITROGEN 14 MG/DL (7-18); CARBON DIOXIDE LEVEL 25 MEQ/L (21-32); CHLORIDE LEVEL 102 MEQ/L (98-107); CREATININE FOR GFR 0.67 MG/DL (0.55-1.30); GLOMERULAR FILTRATION RATE > 60.0 (>60); GLUCOSE, FASTING 100 MG/DL (70-100); MAGNESIUM LEVEL 2.7 MG/DL (1.8-2.4); POTASSIUM SERUM 3.8 MEQ/L (3.5-5.1); SODIUM LEVEL 137 MEQ/L (136-145); TOTAL PROTEIN 7.3 GM/DL (6.4-8.2)
[2019-03-02] MEDS: MULTIVITAMINS/MINERALS THERAP 1 TAB PO SCH (08:52)
[2019-03-02] MEDS: THIAMINE 100 MG TAB PO SCH ×2 (08:52→20:48)
[2019-03-02] MEDS: FOLIC ACID 1 MG TAB PO SCH (08:52)
[2019-03-02] MEDS: ENOXAPARIN 40 MG/0.4 ML SYRINGE (J1650) SC SCH (08:53)
--- NOTE | 2019-03-02 10:51 | IPNPDOC ---
Subjective Date Seen The patient was seen on 03/02/19. Subjective Chief Complaint/HPI No complaints. tolerating diet better today. No tremor, anxiety, n/v or diarrhea Constitutional: Denies: Chills, Fever Pulmonary: Denies: Dyspnea, Cough Cardiovascular: Denies: Chest Pain, Palpitations Gastrointestinal: Denies: Nausea, Vomiting, Abdominal Pain, Diarrhea, Constipation Objective Physical Examination General Exam: Positive: Alert, No Acute Distress Eye Exam: Positive: PERRLA, EOMI; Negative: Sclera icteric ENT Exam: Positive: Mucous membr. moist/pink Chest Exam: Positive: Clear to auscultation, Normal air movement Heart Exam: Positive: Rate Normal, Regular Rhythm, Normal S1, Normal S2; Negative: Murmurs, Rubs Abdomen Exam: Positive: Normal bowel sounds, Soft; Negative: Tenderness, Hepatospenomegaly Extremity Exam: Negative: Edema Skin Exam: Negative: Breakdown Neuro Exam: Positive: Normal Gait, Normal Speech Psych Exam: Positive: Mental status NL, Memory Intact, Oriented x 3 Assessment /Plan Problems (1) Alcohol dependence with withdrawal Problem Text: Has not required prn benzos - no signs of withdrawl as of yet (2) Depression with suicidal ideation Status: Chronic Response to Treatment: Worse Problem Text: plan to transfer to [facility] in am if remains stable from ETOH withdrawl Plan/VTE VTE Prophylaxis Ordered?: Yes VS, I&O, 24H, Fishbone Vital Signs/I&O Vital Signs Date Time Temp Pulse Resp B/P (MAP) Pulse Ox O2 Delivery O2 Flow Rate FiO2 03/02/19 06:00 97.8 87 16 117/76 (90) 99 Room Air I&O- Last 24 Hours up to 6 AM 03/02/19 06:00 Intake Total 600 ml Output Total 475 ml Balance 125 ml Laboratory Data 24H LABS Laboratory Tests 2 03/02/19 05:36: Nucleated Red Blood Cells % (auto) 0.0, Anion Gap 10, Glomerular Filtration Rate > 60.0, Calcium Level 9.0, Magnesium Level 2.7H, Total Bilirubin 1.3#H, Aspartate Amino Transf (AST/SGOT) 34, Alanine Aminotransferase (ALT/SGPT) 40, Alkaline Phosphatase 50, Total Protein 7.3, Albumin 3.5, Albumin/Globulin Ratio 0.92L CBC/BMP Laboratory Tests 03/02/19 05:36 RENEA HOLBROOK PA-C Mar 02, 2019 10:51
[2019-03-02] MEDS: NICOTINE 21MG/24HR 1 EA TRANSDERMAL TD SCH (11:15)
[2019-03-02 14:00] VITALS: BP 148/102
[2019-03-02 22:00] VITALS: BP 142/92
[2019-03-03 06:00] VITALS: BP 127/76
[2019-03-03 06:53] LABS: HEMATOCRIT 50.2 % (36.0-47.0); HEMOGLOBIN 16.4 g/dl (12.0-15.5); MEAN CORPUSCULAR HEMOGLOBIN 29.9 pg (27.0-33.0); MEAN CORPUSCULAR HGB CONC 32.7 g/dl (32.0-36.5); MEAN CORPUSCULAR VOLUME 91.4 fl (80.0-96.0); PLATELET COUNT, AUTOMATED 205 10^3/uL (150-450); RED BLOOD COUNT 5.49 10^6/uL (4.00-5.40); WHITE BLOOD COUNT 7.2 10^3/uL (4.0-10.0)
[2019-03-03 07:20] LABS: ALBUMIN 3.5 GM/DL (3.2-5.2); ALT/SGPT 67 U/L (12-78); BILIRUBIN,TOTAL 0.7 MG/DL (0.2-1.0); BLOOD UREA NITROGEN 13 MG/DL (7-18); CALCIUM LEVEL 8.9 MG/DL (8.5-10.1); CARBON DIOXIDE LEVEL 27 MEQ/L (21-32); CHLORIDE LEVEL 105 MEQ/L (98-107); CREATININE FOR GFR 0.71 MG/DL (0.55-1.30); GLOMERULAR FILTRATION RATE > 60.0 (>60); GLUCOSE, FASTING 107 MG/DL (70-100); SODIUM LEVEL 138 MEQ/L (136-145); TOTAL PROTEIN 7.1 GM/DL (6.4-8.2)
[2019-03-03] MEDS: THIAMINE 100 MG TAB PO SCH (08:09)
[2019-03-03] MEDS: NICOTINE 21MG/24HR 1 EA TRANSDERMAL TD SCH (08:09)
[2019-03-03] MEDS: FOLIC ACID 1 MG TAB PO SCH (08:10)
[2019-03-03] MEDS: MULTIVITAMINS/MINERALS THERAP 1 TAB PO SCH (08:10)
[2019-03-03] MEDS: ENOXAPARIN 40 MG/0.4 ML SYRINGE (J1650) SC SCH (08:10)
--- NOTE | 2019-03-03 10:25 | IPNPDOC ---
Subjective Date Seen The patient was seen on 03/03/19. Subjective Chief Complaint/HPI No complaints. Feesl well. No tremor, shakiness, N/v , abd pain or diarrhea. Eating normally Constitutional: Denies: Chills, Fever ENT: Denies: Head Aches Pulmonary: Denies: Dyspnea, Cough Cardiovascular: Denies: Chest Pain, Palpitations, Orthopnea Gastrointestinal: Denies: Nausea, Vomiting, Abdominal Pain, Diarrhea, Constipation Neurological: Denies: Seizures Objective Physical Examination General Exam: Positive: Alert, No Acute Distress Eye Exam: Positive: PERRLA, EOMI; Negative: Sclera icteric ENT Exam: Positive: Mucous membr. moist/pink Chest Exam: Positive: Clear to auscultation, Normal air movement Heart Exam: Positive: Rate Normal, Regular Rhythm, Normal S1, Normal S2; Negative: Murmurs, Rubs Abdomen Exam: Positive: Normal bowel sounds, Soft; Negative: Tenderness, Hepatospenomegaly Extremity Exam: Negative: Edema Skin Exam: Negative: Breakdown Neuro Exam: Positive: Normal Gait, Normal Speech Psych Exam: Positive: Mental status NL, Memory Intact, Oriented x 3 Assessment /Plan Problems (1) Alcohol dependence with withdrawal Problem Text: 03/03 - Has not required prn benzos - no signs of withdrawl Patient is medically stable [facility] (2) Depression with suicidal ideation Status: Chronic Response to Treatment: Worse Problem Text: 03/03 - Patient is medically stable for transfer to [facility]. Unfortunately the hospitalist who admitted the patient (Dr. Tello) stated in the admission note that psych was consulted and put an order in for Psych Consult with Dr. Pinzon leading us to believe that Psych was aware of consult, however I spoke with Dr. Pinzon this am and he states he was not made aware of the consult. Dr. Benavides is screwhead stoner and polisher for psych consults today. I spoke with her - She is in her office and cannot come see the patient until after her office hours at 5 pm. Therefore, the patient will not be able to be discharged until then. There are [facility] beds available currently. Hopefully they will still be available at 5 pm. Legal paperwork will need to be signed once she is accepted by psych - product development manager MD will need to come in to do this. Plan/VTE VTE Prophylaxis Ordered?: Yes Disposition See above VS, I&O, 24H, Fishbone Vital Signs/I&O Vital Signs Date Time Temp Pulse Resp B/P (MAP) Pulse Ox O2 Delivery O2 Flow Rate FiO2 03/03/19 06:00 97.3 85 16 127/76 (93) 98 Room Air I&O- Last 24 Hours up to 6 AM 03/03/19 06:00 Intake Total 2300 ml Output Total 0 ml Balance 2300 ml Laboratory Data 24H LABS Laboratory Tests 2 03/03/19 06:37: Nucleated Red Blood Cells % (auto) 0.0, Anion Gap 6L, Glomerular Filtration Rate > 60.0, Calcium Level 8.9, Total Bilirubin 0.7, Aspartate Amino Transf (AST/SGOT) 63H, Alanine Aminotransferase (ALT/SGPT) 67, Alkaline Phosphatase 49, Total Protein 7.1, Albumin 3.5, Albumin/Globulin Ratio 0.97L CBC/BMP Laboratory Tests 03/03/19 06:37 RENEA HOLBROOK PA-C Mar 03, 2019 10:24
[2019-03-03 14:00] VITALS: BP 141/92
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
[2019-03-03] MEDS ORDERED: FOLI1TAB11 PO (16:29)
== END 2019-03-03 17:27 | DRG 775 ==
LOC: M ED 15:40 → M ED INP 03-01 13:42 → M MSPAV 03-01 15:18
PROVIDERS: ADMIT Internal Medicine; ATTEND Family Medicine
DX: F10.239 Alcohol dependence with withdrawal, unspecified (principal); R45.851 Suicidal ideations; F32.2 Major depressive disorder, single episode, severe without psychotic features; F10.229 Alcohol dependence with intoxication, unspecified; F19.10 Other psychoactive substance abuse, uncomplicated; F41.9 Anxiety disorder, unspecified; F43.10 Post-traumatic stress disorder, unspecified; Z91.14 Patient's other noncompliance with medication regimen; Z79.899 Other long term (current) drug therapy; F17.200 Nicotine dependence, unspecified, uncomplicated; Z81.8 Family history of other mental and behavioral disorders; Z62.819 Personal history of unspecified abuse in childhood

== ENCOUNTER 2019-03-03 16:03 | Inpatient (IN) | payer MEDICAID ==
[~2019-03-03] VITALS: Ht 162.6 cm; Wt 81.3 kg
[~2019-03-03 16:03] MED LIST changes: +BUPR15TASR PO; +CELE1CAP4 PO; +IBUP200C28 PO; +RISP3TAB3 PO; +TRAZ-189 PO
[2019-03-03] MEDS ORDERED: FOLI1TAB11 PO (16:29)
[2019-03-03 19:25] VITALS: BP 107/105
[2019-03-03 19:39] VITALS: BP 118/98
[2019-03-03] MEDS ORDERED: traZODone 50 MG TAB PO PRN (20:15)
[2019-03-04 06:08] VITALS: BP 130/76
[2019-03-04] MEDS: NICOTINE 21MG/24HR 1 EA TRANSDERMAL TD SCH (08:16)
--- NOTE | 2019-03-04 10:11 | HPEPDOC ---
[facility] Medical History & Physical Date of Admission Mar 03, 2019 Date of Service: Mar 04, 2019 History and Physical CHIEF COMPLAINT: suicidal ideation HISTORY OF PRESENT ILLNESS: 38 yo W with a history of bipolar, depression, anxiety, PTSD and PSUD who presented with suicidal ideation in the setting alcoh ol intoxication, non-compliance with prescribed medications or medical follow up. She was seen in the ED on 02/28 and was being managed for alcohol withdrawal, and deemed medically stable for discharge to [facility]. Hospitalist consulted for medical management. PAST MEDICAL HISTORY: bipolar disorder anxiety/depression PTSD polysubstance abuse medical non-compliance PAST SURGICAL HISTORY: denies ALLERGIES: Please see below. REVIEW OF SYSTEMS: Negative except as per HPI. HOME MEDICATIONS: Please see below. PHYSICAL EXAMINATION: VITAL SIGNS: See below HEENT: NC/AT, EOMI, PERRL General: NAD, sitting comfortaly in chair CARDIOVASCULAR: +S1S2, RRR, -M/R/G LUNGS: CTA B/L ABDOMEN: soft, NT, +BS EXTREMITIES: no edema NEUROLOGICAL: no gross focal deficits PSYCHIATRIC: AAOx3, in good spirits LABORATORY DATA: See below. MICROBIOLOGY: Please see below. ASSESSMENT/Plan: 38 yo female with history including bipolar disorder, anxiety/depression, PTSD and polysubstance abuse who presented with suicidal ideation in the setting alcohol intoxication, non-compliance with medications. #suicidal ideation - follow as per primary team - psychiatry #EtOH abuse - thiamine/folate - follow as per psychiatry for substance abuse #hypertension - will check labs - continue to follow - if continues to remain elevated will start norvasc #medical non-compliance - complicates care #nicotine abuse - counselling provided at bedside - nicotine replacement therapy Dispo: check BMP, follow blood pressure, will start norvasc if needed Vital Signs Vital Signs Date Time Temp Pulse Resp B/P (MAP) Pulse Ox O2 Delivery O2 Flow Rate FiO2 03/04/19 06:08 98.8 82 16 130/76 (94) Home Medications Scheduled Folic Acid (Folic Acid) 1 Mg Tablet, 1 MG PO DAILY Allergies Coded Allergies: sertraline (Verified Allergy, Severe, increased s/i, 02/28/19) A-FIB/CHADSVASC A-FIB History Current/History of A-Fib/PAF?: No VEL MCKEON MD Mar 04, 2019 10:11
[2019-03-04 14:15] VITALS: BP 175/103
[2019-03-04] MEDS ORDERED: LORazepam 2 MG TAB PO PRN (14:30)
[2019-03-04] MEDS: THIAMINE 100 MG TAB PO SCH ×2 (14:44→21:09)
[2019-03-04] MEDS: MULTIVITAMINS/MINERALS THERAP 1 TAB PO SCH (14:44)
[2019-03-04] MEDS: FOLIC ACID 1 MG TAB PO SCH (14:44)
[2019-03-04 16:07] VITALS: BP 132/90
[2019-03-04 16:08] VITALS: BP 132/90
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
[2019-03-04] MEDS: traZODone 100 MG TAB PO PRN (21:09)
[2019-03-05 06:16] VITALS: BP 129/87
[2019-03-05 06:22] VITALS: BP 129/87
[2019-03-05 07:45] LABS: ALBUMIN 3.5 GM/DL (3.2-5.2); ALT/SGPT 99 U/L (12-78); BILIRUBIN,TOTAL 0.7 MG/DL (0.2-1.0); BLOOD UREA NITROGEN 10 MG/DL (7-18); CALCIUM LEVEL 8.6 MG/DL (8.5-10.1); CARBON DIOXIDE LEVEL 27 MEQ/L (21-32); CHLORIDE LEVEL 105 MEQ/L (98-107); GLOMERULAR FILTRATION RATE > 60.0 (>60); GLUCOSE, FASTING 109 MG/DL (70-100); POTASSIUM SERUM 3.9 MEQ/L (3.5-5.1); SODIUM LEVEL 139 MEQ/L (136-145); TOTAL PROTEIN 7.1 GM/DL (6.4-8.2)
[2019-03-05] MEDS: NICOTINE 21MG/24HR 1 EA TRANSDERMAL TD SCH (08:13)
[2019-03-05] MEDS: THIAMINE 100 MG TAB PO SCH ×2 (08:13→21:40)
[2019-03-05] MEDS: MULTIVITAMINS/MINERALS THERAP 1 TAB PO SCH (08:13)
[2019-03-05] MEDS: FOLIC ACID 1 MG TAB PO SCH (08:13)
[2019-03-05] MEDS ORDERED: buPROPion 100 MG TAB PO SCH (09:00)
[2019-03-05] MEDS ORDERED: buPROPion 75 MG TAB PO SCH (09:00)
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
--- NOTE | 2019-03-05 12:42 | IPNPDOC ---
Text Note Date of Service The patient was seen on 03/05/19. NOTE Subjective: Patient seen and examined at bedside. No medical complaints. She is not sure regarding any workup she may have had in the past regarding hypertension, or regular medical follow up. Objective: VITAL SIGNS: See below HEENT: NC/AT, EOMI, PERRL General: NAD, sitting comfortaly in chair CARDIOVASCULAR: +S1S2, RRR, -M/R/G LUNGS: CTA B/L ABDOMEN: soft, NT, +BS EXTREMITIES: no edema NEUROLOGICAL: no gross focal deficits PSYCHIATRIC: AAOx3, in good spirits LABORATORY DATA: See below. MICROBIOLOGY: Please see below. ASSESSMENT/Plan: 38 yo female with history including bipolar disorder, anxiety/depression, PTSD and polysubstance abuse who presented with suicidal ideation in the setting alcohol intoxication, non-compliance with medications. #routine medical follow up - will check A1C and lipid profile #?HTN - continue to follow clinically #suicidal ideation - follow as per primary team - psychiatry #EtOH abuse - thiamine/folate - follow as per psychiatry for substance abuse #medical non-compliance - complicates care #nicotine abuse - counselling provided at bedside - nicotine replacement therapy Dispo: check A1C, lipid profile VS,Fishbone, I+O VS, Fishbone, I+O Laboratory Tests 03/05/19 07:01 Vital Signs Date Time Temp Pulse Resp B/P (MAP) Pulse Ox O2 Delivery O2 Flow Rate FiO2 03/05/19 06:22 85 129/87 03/05/19 06:16 98.4 16 VEL MCKEON MD Mar 05, 2019 12:42
[2019-03-05] MEDS: MOM 30ML SUSPENSION UDC PO PRN (13:27)
[2019-03-05 14:00] VITALS: BP 143/99
[2019-03-05 16:00] VITALS: BP 144/86
[2019-03-05] MEDS: RAMELTEON 8 MG TAB (ROZEREM) PO SCH (21:39)
[2019-03-05] MEDS: traZODone 100 MG TAB PO PRN (21:40)
[2019-03-06 06:21] VITALS: BP 113/68
[2019-03-06 07:35] LABS: HEMOGLOBIN A1c 5.7 %
[2019-03-06 07:44] LABS: CHOLESTEROL RISK RATIO 4.062 (<5)
[2019-03-06] MEDS: buPROPion **XL** TABLET 150MG (WELLBUTRIN XL) PO SCH (08:11)
[2019-03-06] MEDS: MULTIVITAMINS/MINERALS THERAP 1 TAB PO SCH (08:11)
[2019-03-06] MEDS: NICOTINE 21MG/24HR 1 EA TRANSDERMAL TD SCH (08:12)
[2019-03-06] MEDS: THIAMINE 100 MG TAB PO SCH ×2 (08:12→21:06)
[2019-03-06] MEDS: FOLIC ACID 1 MG TAB PO SCH (08:12)
[2019-03-06] MEDS ORDERED: NALTREXONE 50 MG TAB PO SCH (09:00)
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
[2019-03-06 12:00] VITALS: BP 128/77
[2019-03-06] MEDS: OLANZapine 5 MG TAB PO PRN (15:25)
[2019-03-06 17:03] VITALS: BP 130/87
[2019-03-06] MEDS: RAMELTEON 8 MG TAB (ROZEREM) PO SCH (21:05)
[2019-03-06] MEDS: traZODone 100 MG TAB PO PRN (21:06)
[2019-03-07 06:34] VITALS: BP 123/56
[2019-03-07] MEDS: MULTIVITAMINS/MINERALS THERAP 1 TAB PO SCH (08:05)
[2019-03-07] MEDS: buPROPion **XL** TABLET 150MG (WELLBUTRIN XL) PO SCH (08:05)
[2019-03-07] MEDS: NICOTINE 21MG/24HR 1 EA TRANSDERMAL TD SCH (08:05)
[2019-03-07] MEDS: FOLIC ACID 1 MG TAB PO SCH (08:05)
[2019-03-07] MEDS: THIAMINE 100 MG TAB PO SCH (08:05)
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
[2019-03-07 16:16] VITALS: BP 131/86
[2019-03-07] MEDS: RAMELTEON 8 MG TAB (ROZEREM) PO SCH (21:13)
[2019-03-07] MEDS: NALTREXONE 50 MG TAB PO SCH (21:14)
[2019-03-07] MEDS: PILL CUTTER 1 EACH XX PRN (21:17)
[2019-03-07] MEDS: zolPIDEM TARTRATE 5 MG TAB PO SCH (21:17)
[2019-03-08 06:49] VITALS: BP 134/70
[2019-03-08] MEDS: buPROPion **XL** TABLET 150MG (WELLBUTRIN XL) PO SCH (08:09)
[2019-03-08] MEDS: FOLIC ACID 1 MG TAB PO SCH (08:09)
[2019-03-08] MEDS: NICOTINE 21MG/24HR 1 EA TRANSDERMAL TD SCH (08:09)
[2019-03-08] MEDS: MULTIVITAMINS/MINERALS THERAP 1 TAB PO SCH (08:09)
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
[2019-03-08 16:44] VITALS: BP 118/68
[2019-03-08] MEDS: OLANZapine 5 MG TAB PO PRN (19:26)
[2019-03-08] MEDS: RAMELTEON 8 MG TAB (ROZEREM) PO SCH (20:50)
[2019-03-08] MEDS: NALTREXONE 50 MG TAB PO SCH (20:51)
[2019-03-08] MEDS: PILL CUTTER 1 EACH XX PRN (21:41)
[2019-03-08] MEDS: zolPIDEM TARTRATE 5 MG TAB PO SCH (21:41)
[2019-03-09 06:13] VITALS: BP 138/86
[2019-03-09] MEDS: NICOTINE 21MG/24HR 1 EA TRANSDERMAL TD SCH (08:10)
[2019-03-09] MEDS: MULTIVITAMINS/MINERALS THERAP 1 TAB PO SCH (08:11)
[2019-03-09] MEDS: FOLIC ACID 1 MG TAB PO SCH (08:11)
[2019-03-09] MEDS: buPROPion **XL** TABLET 150MG (WELLBUTRIN XL) PO SCH (08:11)
[2019-03-09] MEDS: MOM 30ML SUSPENSION UDC PO PRN (09:42)
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
[2019-03-09] MEDS: OLANZapine 5 MG TAB PO PRN (10:32)
[2019-03-09] MEDS ORDERED: VENLAFAXINE **XR** 37.5 MG CAPSULE PO ONE (12:00)
[2019-03-09 16:35] VITALS: BP 113/67
[2019-03-09] MEDS: NALTREXONE 50 MG TAB PO SCH (20:12)
[2019-03-09] MEDS: RAMELTEON 8 MG TAB (ROZEREM) PO SCH (20:12)
[2019-03-09] MEDS: MAALOX 30 ML SUSP *UDC PO PRN (20:12)
[2019-03-09] MEDS: zolPIDEM TARTRATE 5 MG TAB PO SCH (20:48)
[2019-03-10 06:19] VITALS: BP 142/72
[2019-03-10] MEDS: NICOTINE 21MG/24HR 1 EA TRANSDERMAL TD SCH (08:12)
[2019-03-10] MEDS: FOLIC ACID 1 MG TAB PO SCH (08:12)
[2019-03-10] MEDS: MULTIVITAMINS/MINERALS THERAP 1 TAB PO SCH (08:12)
[2019-03-10] MEDS ORDERED: VENLAFAXINE **XR** 37.5 MG CAPSULE PO SCH (09:00)
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
[2019-03-10] MEDS: OLANZapine 5 MG TAB PO PRN (15:31)
[2019-03-10 16:08] VITALS: BP 162/88
[2019-03-10 17:07] VITALS: BP 138/85
[2019-03-10] MEDS: RAMELTEON 8 MG TAB (ROZEREM) PO SCH (20:33)
[2019-03-10] MEDS: NALTREXONE 50 MG TAB PO SCH (20:33)
[2019-03-10] MEDS: zolPIDEM TARTRATE 5 MG TAB PO SCH (20:33)
[2019-03-11 06:38] VITALS: BP 127/76
[2019-03-11] MEDS: VENLAFAXINE **XR** 75MG CAPSULE PO SCH (08:38)
[2019-03-11] MEDS: MULTIVITAMINS/MINERALS THERAP 1 TAB PO SCH (08:38)
[2019-03-11] MEDS: FOLIC ACID 1 MG TAB PO SCH (08:38)
[2019-03-11] MEDS: NICOTINE 21MG/24HR 1 EA TRANSDERMAL TD SCH (08:38)
[2019-03-11] MEDS: OLANZapine 5 MG TAB PO PRN (13:08)
[2019-03-11 15:59] VITALS: BP 161/84
[2019-03-11] MEDS: NALTREXONE 50 MG TAB PO SCH (20:52)
[2019-03-11] MEDS: RAMELTEON 8 MG TAB (ROZEREM) PO SCH (21:23)
[2019-03-11] MEDS: zolPIDEM TARTRATE 5 MG TAB PO SCH (21:23)
[2019-03-12 06:25] VITALS: BP 131/80
[2019-03-12] MEDS: FOLIC ACID 1 MG TAB PO SCH (08:09)
[2019-03-12] MEDS: NICOTINE 21MG/24HR 1 EA TRANSDERMAL TD SCH (08:09)
[2019-03-12] MEDS: MULTIVITAMINS/MINERALS THERAP 1 TAB PO SCH (08:09)
[2019-03-12] MEDS: VENLAFAXINE **XR** 75MG CAPSULE PO SCH (08:09)
[2019-03-12] MEDS: OLANZapine 5 MG TAB PO PRN (14:09)
[2019-03-12] MEDS: MAALOX 30 ML SUSP *UDC PO PRN (14:46)
[2019-03-12 15:41] VITALS: BP 126/86
[2019-03-12] MEDS: RAMELTEON 8 MG TAB (ROZEREM) PO SCH (21:18)
[2019-03-12] MEDS: NALTREXONE 50 MG TAB PO SCH (21:19)
[2019-03-12] MEDS: zolPIDEM TARTRATE 5 MG TAB PO SCH (21:19)
[2019-03-13 06:44] VITALS: BP 143/72
[2019-03-13] MEDS: VENLAFAXINE **XR** 75MG CAPSULE PO SCH (08:23)
[2019-03-13] MEDS: MULTIVITAMINS/MINERALS THERAP 1 TAB PO SCH (08:23)
[2019-03-13] MEDS: NICOTINE 21MG/24HR 1 EA TRANSDERMAL TD SCH (08:23)
[2019-03-13] MEDS: FOLIC ACID 1 MG TAB PO SCH (08:23)
[2019-03-13] MEDS: OLANZapine 5 MG TAB PO PRN (14:35)
[2019-03-13 16:41] VITALS: BP 138/90
[2019-03-13] MEDS: RAMELTEON 8 MG TAB (ROZEREM) PO SCH (20:49)
[2019-03-13] MEDS: zolPIDEM TARTRATE 5 MG TAB PO SCH (20:49)
[2019-03-13] MEDS: NALTREXONE 50 MG TAB PO SCH (20:49)
[2019-03-14 06:00] VITALS: BP 121/79
[2019-03-14] MEDS: NICOTINE 21MG/24HR 1 EA TRANSDERMAL TD SCH (08:45)
[2019-03-14] MEDS: FOLIC ACID 1 MG TAB PO SCH (08:45)
[2019-03-14] MEDS: MULTIVITAMINS/MINERALS THERAP 1 TAB PO SCH (08:45)
[2019-03-14] MEDS: VENLAFAXINE **XR** 75MG CAPSULE PO SCH (08:45)
--- NOTE | 2019-03-14 11:58 | MHIPN ---
DATE: 03/13/2019 VITAL SIGNS: Temperature 98.1, pulse 87, respirations 16, blood pressure 143/72. CURRENT MEDICATIONS: - Effexor XR 75 mg daily - Ambien 5 mg at bedtime - naltrexone 50 mg at bedtime - Rozerem 8 mg at bedtime - trazodone 100 mg at bedtime as needed - Zyprexa 5 mg every four hours as needed HISTORY OF PRESENT ILLNESS: This is a 38-year-old white female, , living with her 21-year-old daughter. The patient's boyfriend precipitously moved out to [place]. She has other situational stressors as well. She dislikes her job. She has financial issues. The patient stopped her medication for a two-month period and mood promptly plummeted. The patient has been treated by Dr. Bermudez and just started on Effexor with some benefit. She states that her mood is somewhat depressed. She no longer has weepy episodes and feels comfortable increasing the dosage. She is tolerating the medication well. She denies side effects. MENTAL STATUS EXAMINATION: The patient is alert, oriented and cooperative. Grooming and hygiene appears good. Thought processes appear within normal limits. She denies auditory hallucinations. No signs of thought disorder. Insight and judgment appear fair. Cognitive functions appear intact. Mood is mildly to moderately depressed. No current suicidal ideation. No signs of impulsivity or dangerousness. DIAGNOSES: 1. Major depression, recurrent, severe. 2. Alcohol use disorder. ASSESSMENT: The patient appears to be gradually responding to medication and milieu therapy. PLAN: Increase Effexor dosage up to 150 mg daily. No change in other psychotropic medications. Continue involvement in hospital milieu. [facility]
[2019-03-14] MEDS: OLANZapine 5 MG TAB PO PRN (13:51)
--- NOTE | 2019-03-14 14:00 | MHIPN ---
DATE: 03/14/2019 VITAL SIGNS: Temperature 98.5, pulse 88, respirations 16, blood pressure 121/79. CURRENT MEDICATIONS: - Effexor XR 75 mg every morning - Ambien 5 mg at bedtime - naltrexone 50 mg at bedtime - Rozerem 8 mg at bedtime - trazodone 100 mg at bedtime as needed - Zyprexa 5 mg every four hours as needed HISTORY OF PRESENT ILLNESS: The patient still reports moderately severe depression. She feels "blah." She complains of fatigue. She slept fairly well last night but was up twice. She finds the Ambien helpful. The patient is attending group therapy program. The patient feels comfortable being here on the unit over the Holidays. Her mother visits and is quite supportive. No side effects on the Effexor. MENTAL STATUS EXAMINATION: The patient is alert, oriented and cooperative. Affect still appears sad with moderate depression. She is no currently suicidal. No signs of psychosis. Insight and judgment remain fair. Grooming and hygiene appear good. No signs of impulsivity or dangerousness on the unit. DIAGNOSIS: 1. Major depression, recurrent, moderate severity. 2. Alcohol use disorder. PLAN: Continue Effexor XR 150 mg daily. Encourage involvement in hospital milieu therapy program.
[2019-03-14 16:13] VITALS: BP 137/87
[2019-03-14] MEDS: NALTREXONE 50 MG TAB PO SCH (20:24)
[2019-03-14] MEDS: zolPIDEM TARTRATE 5 MG TAB PO SCH (21:03)
[2019-03-14] MEDS: RAMELTEON 8 MG TAB (ROZEREM) PO SCH (21:03)
[2019-03-15 06:27] VITALS: BP 128/78
[2019-03-15] MEDS: VENLAFAXINE **XR** 75MG CAPSULE PO SCH (08:04)
[2019-03-15] MEDS: FOLIC ACID 1 MG TAB PO SCH (08:04)
[2019-03-15] MEDS: MULTIVITAMINS/MINERALS THERAP 1 TAB PO SCH (08:04)
[2019-03-15] MEDS: NICOTINE 21MG/24HR 1 EA TRANSDERMAL TD SCH (08:05)
[2019-03-15 16:37] VITALS: BP 140/88
[2019-03-15] MEDS: OLANZapine 5 MG TAB PO PRN (18:17)
[2019-03-15] MEDS: RAMELTEON 8 MG TAB (ROZEREM) PO SCH (21:02)
[2019-03-15] MEDS: NALTREXONE 50 MG TAB PO SCH (21:03)
[2019-03-15] MEDS: zolPIDEM TARTRATE 5 MG TAB PO SCH (21:03)
[2019-03-16 06:23] VITALS: BP 144/83
[2019-03-16] MEDS: MULTIVITAMINS/MINERALS THERAP 1 TAB PO SCH (08:13)
[2019-03-16] MEDS: VENLAFAXINE **XR** 75MG CAPSULE PO SCH (08:13)
[2019-03-16] MEDS: FOLIC ACID 1 MG TAB PO SCH (08:13)
[2019-03-16] MEDS: NICOTINE 21MG/24HR 1 EA TRANSDERMAL TD SCH (08:13)
[2019-03-16] MEDS: ACETAMINOPHEN TAB 650MG DOSE (2X325MG) PO PRN (12:42)
[2019-03-16 16:03] VITALS: BP 139/82
--- NOTE | 2019-03-16 16:35 | MHIPN ---
DATE: 03/16/2019 VITAL SIGNS: Temperature 99.6, pulse 87, respirations 14, blood pressure 144/83. CURRENT MEDICATIONS: - venlafaxine XR 150 mg in the morning - Ambien 5 mg at night - naltrexone 50 mg at night - Rozerem 8 mg at night - trazodone 100 mg at night as needed - Zyprexa 5 mg every 4 hours as needed HISTORY OF PRESENT ILLNESS: The patient still feels depressed. She feels "blah." She did not feel happy over the holidays yesterday. Her boyfriend came to visit, she got no enjoyment out of this either. The patient was informed that she will be discharged to [facility], waiting for a bed at an inpatient drug rehabilitation program. This is because she violated probation by drinking prior to admission. The patient feels numb about this. She states that in the past she would mutilate herself just to get some feeling, even if it was pain. Her last episode of this was several years ago and she has no wish to self mutilate at this time. This will be monitored. MENTAL STATUS EXAMINATION: The patient is alert, awake, and reasonably cooperative. Affect still appears sad. Depression is moderate severity. She has no current suicidal ideation. She is not homicidal. The patient is not psychotic. Insight and judgment are fair. Grooming and hygiene appear good. The patient feels safe here on the unit with no wish to harm herself. DIAGNOSES: 1. Major depression, recurrent and moderate severity. 2. Alcohol use disorder. PLAN: Continue present management. Followup with Dr. Bermudez tomorrow.
[2019-03-16] MEDS: NALTREXONE 50 MG TAB PO SCH (20:15)
[2019-03-16] MEDS: RAMELTEON 8 MG TAB (ROZEREM) PO SCH (20:15)
[2019-03-16] MEDS: zolPIDEM TARTRATE 5 MG TAB PO SCH (20:15)
[2019-03-17 06:38] VITALS: BP 136/81
[2019-03-17] MEDS: FOLIC ACID 1 MG TAB PO SCH (08:34)
[2019-03-17] MEDS: MULTIVITAMINS/MINERALS THERAP 1 TAB PO SCH (08:34)
[2019-03-17] MEDS: VENLAFAXINE **XR** 75MG CAPSULE PO SCH (08:34)
[2019-03-17] MEDS: ACETAMINOPHEN TAB 650MG DOSE (2X325MG) PO PRN (08:35)
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
[2019-03-17] MEDS: NICOTINE 21MG/24HR 1 EA TRANSDERMAL TD SCH (09:01)
[2019-03-17] MEDS: OLANZapine 5 MG TAB PO PRN (12:54)
[2019-03-17 16:06] VITALS: BP 115/64
[2019-03-17] MEDS: NALTREXONE 50 MG TAB PO SCH (21:08)
[2019-03-17] MEDS: zolPIDEM TARTRATE 5 MG TAB PO SCH (21:08)
[2019-03-17] MEDS: RAMELTEON 8 MG TAB (ROZEREM) PO SCH (21:08)
[2019-03-18 06:24] VITALS: BP 109/59
[2019-03-18] MEDS: MULTIVITAMINS/MINERALS THERAP 1 TAB PO SCH (08:12)
[2019-03-18] MEDS: FOLIC ACID 1 MG TAB PO SCH (08:12)
[2019-03-18] MEDS: NICOTINE 21MG/24HR 1 EA TRANSDERMAL TD SCH (08:12)
[2019-03-18] MEDS: VENLAFAXINE **XR** 75MG CAPSULE PO SCH (08:12)
[2019-03-18 16:14] VITALS: BP 132/80
[2019-03-18] MEDS: RAMELTEON 8 MG TAB (ROZEREM) PO SCH (20:53)
[2019-03-18] MEDS: NALTREXONE 50 MG TAB PO SCH (20:53)
[2019-03-18] MEDS: zolPIDEM TARTRATE 5 MG TAB PO SCH (20:53)
[2019-03-19 06:02] VITALS: BP 142/73
[2019-03-19] MEDS: VENLAFAXINE **XR** 75MG CAPSULE PO SCH (08:08)
[2019-03-19] MEDS: FOLIC ACID 1 MG TAB PO SCH (08:09)
[2019-03-19] MEDS: MULTIVITAMINS/MINERALS THERAP 1 TAB PO SCH (08:09)
[2019-03-19] MEDS: NICOTINE 21MG/24HR 1 EA TRANSDERMAL TD SCH (08:09)
[2019-03-19] MEDS: OLANZapine 5 MG TAB PO PRN (13:16)
[2019-03-19 16:36] VITALS: BP 122/86
[2019-03-19] MEDS: NALTREXONE 50 MG TAB PO SCH (21:20)
[2019-03-19] MEDS: RAMELTEON 8 MG TAB (ROZEREM) PO SCH (21:20)
[2019-03-19] MEDS: zolPIDEM TARTRATE 5 MG TAB PO SCH (21:20)
[2019-03-19] MEDS: MAALOX 30 ML SUSP *UDC PO PRN (22:34)
[2019-03-20] MEDS: VENLAFAXINE **XR** 75MG CAPSULE PO SCH (08:43)
[2019-03-20] MEDS: FOLIC ACID 1 MG TAB PO SCH (08:43)
[2019-03-20] MEDS: MULTIVITAMINS/MINERALS THERAP 1 TAB PO SCH (08:43)
[2019-03-20] MEDS: NICOTINE 21MG/24HR 1 EA TRANSDERMAL TD SCH (08:44)
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
== END 2019-03-20 09:50 | DRG 751 ==
LOC: M PSY 17:32
PROVIDERS: ADMIT Psychiatry & Neurology Addiction Medicine; ATTEND Psychiatry & Neurology Addiction Medicine
DX: F32.2 Major depressive disorder, single episode, severe without psychotic features (principal); F10.220 Alcohol dependence with intoxication, uncomplicated; F17.210 Nicotine dependence, cigarettes, uncomplicated; Z88.8 Allergy status to other drugs, medicaments and biological substances; F41.9 Anxiety disorder, unspecified; F43.10 Post-traumatic stress disorder, unspecified; F19.20 Other psychoactive substance dependence, uncomplicated; Z91.14 Patient's other noncompliance with medication regimen; Z62.810 Personal history of physical and sexual abuse in childhood; I10 Essential (primary) hypertension; Z81.8 Family history of other mental and behavioral disorders

== ENCOUNTER 2019-07-29 10:34 | Inpatient (IN) | payer MEDICAID, OTHER ==
[~2019-07-29] VITALS: Ht 162.6 cm; Wt 90.9 kg
[~2019-07-29 10:34] MED LIST changes: +CYCL-707 PO; -CYCL10TA PO; +FOLI1TAB11 PO; -LISI-1046; -LISI-1046 PO; +LISI2.5T2; +LISI2.5T2 PO; -TRAZ10TA PO; +TRAZ1TAB12 PO
[2019-07-29 11:00] LABS: BASO # 0.1 10^3/uL (0.0-0.2); BASO % 0.6 % (0.0-1.0); EOS # 0.2 10^3/uL (0.0-0.5); EOS % 1.5 % (0.0-3.0); HEMATOCRIT 41.1 % (36.0-47.0); HEMOGLOBIN 13.8 g/dl (12.0-15.5); LYMPH # 1.1 10^3/uL (1.5-5.0); LYMPH % 8.4 % (24.0-44.0); MEAN CORPUSCULAR HGB CONC 33.6 g/dl (32.0-36.5); MEAN CORPUSCULAR VOLUME 89.3 fl (80.0-96.0); MONO # 1.5 10^3/uL (0.0-0.8); MONO % 11.7 % (0.0-5.0); NEUTROPHILS # 10.1 10^3/uL (1.5-8.5); NEUTROPHILS % 77.4 % (36.0-66.0); PLATELET COUNT, AUTOMATED 354 10^3/uL (150-450)
[2019-07-29] MEDS ORDERED: VENL150C43 PO (11:16)
[2019-07-29] MEDS ORDERED: BUPR15TASR PO (11:16)
[2019-07-29] MEDS ORDERED: HYDR-3363 PO (11:16)
[2019-07-29] MEDS ORDERED: ACAM0.05 PO (11:16)
[2019-07-29 11:28] LABS: HCG, SERUM QUALITATIVE NEGATIVE (NEGATIVE)
[2019-07-29] MEDS ORDERED: LORazepam 2 MG TAB PO PRN (11:30)
[2019-07-29 11:33] LABS: ALBUMIN 4.1 GM/DL (3.2-5.2); ALT/SGPT 26 U/L (12-78); BILIRUBIN,DIRECT 0.1 MG/DL (0.0-0.2); BILIRUBIN,TOTAL 0.3 MG/DL (0.2-1.0); BLOOD UREA NITROGEN 5 MG/DL (7-18); CALCIUM LEVEL 9.2 MG/DL (8.5-10.1); CARBON DIOXIDE LEVEL 24 MEQ/L (21-32); CHLORIDE LEVEL 104 MEQ/L (98-107); CPK CREATINE PHOSPHOKINASE 346 U/L (26-192); GLOMERULAR FILTRATION RATE > 60.0 (>60); GLUCOSE, FASTING 121 MG/DL (70-100); SALICYLATE LEVEL < 1.7 MG/DL (5.0-30.0); SODIUM LEVEL 138 MEQ/L (136-145); TOTAL PROTEIN 7.7 GM/DL (6.4-8.2)
[2019-07-29 11:34] LABS: ACETAMINOPHEN LEVEL < 2.0 UG/ML (10.0-30.0); ETHYL ALCOHOL (ETHANOL) < 0.003 % (0.000-0.010)
[2019-07-29 11:39] LABS: AMPHETAMINES LEVEL URINE NEGATIVE (NEGATIVE); BARBITURATES URINE NEGATIVE (NEGATIVE); BENZODIAZEPINES URINE NEGATIVE (NEGATIVE); CANNABINOIDS URINE NEGATIVE (NEGATIVE); COCAINE METABOLITE URINE NEGATIVE (NEGATIVE); METHADONE URINE NEGATIVE (NEGATIVE); OPIATES URINE NEGATIVE (NEGATIVE); PHENCYCLIDINE URINE NEGATIVE (NEGATIVE)
[2019-07-29] MEDS ORDERED: LORazepam 2 MG/ML VIAL (J2060) IV ONE (11:45)
--- NOTE | 2019-07-29 11:51 | REP ---
CHEST: REASON: Drug overdose. COMPARISON: No priors. FINDINGS: The technique utilized in obtaining the radiograph has magnified the cardiac silhouette and accentuated the interstitial markings. The superior mediastinal structures are midline. The cardiac silhouette is unremarkable in size, shape, and position. The diaphragmatic surfaces of the lungs are regular, and the costophrenic angles are clear. The pulmonary johnson are clear. The imaged osseous structures are intact. IMPRESSION: There is no acute cardiopulmonary disease. Electronically Signed by Juan C Ahn DO 07/29/2019 12:59 P
[2019-07-29] MEDS ORDERED: NALT50TA4 PO (11:56)
[2019-07-29] MEDS ORDERED: BUPR150T5 PO (11:56)
[2019-07-29] MEDS ORDERED: GABA-843 PO (11:58)
[2019-07-29] MEDS ORDERED: OLAN15TA PO (11:58)
[2019-07-29] MEDS ORDERED: NICO21DI38 TOP (11:58)
[2019-07-29] MEDS ORDERED: TRAZ-189 PO (11:58)
--- NOTE | 2019-07-29 12:40 | HPEPDOC ---
[facility] Medical History & Physical Date of Admission July 29, 2019 Date of Service: July 29, 2019 Primary Care Physician: Kleber Chaudhari M.D. Attending Physician: Amy Santoro MD History and Physical CHIEF COMPLAINT: Wellbutrin overdose, seizure HISTORY OF PRESENT ILLNESS: The patient is a 38-year-old female with a past medical history of depression, anxiety, alcohol abuse, PTSD, history of suicidal ideation, psychoactive substance abuse disorder who presented to [facility] after having a witnessed seizure by her daughter at home. As per patient to was awake alert and oriented 3 on exam, she states that she has been taking more Wellbutrin on purpose for "a while to get a buzz". She says she has been doing this for several months at least. She does it in splurges because she does not have enough to do it every day. This morning she says she cannot remember anything from the incident of concern, could not say how many pills she took exactly but states that she "found another bottle with pills in it" and took those. Her daughter was present when the patient had a seizure and she fell down to the ground. There was generalized tremoring, loss of consciousness noted. No loss of bowel or bladder, tongue biting, no hitting of her head was noted. Next thing she remembers she was arguing with her mom and sister. She was confused as to what just happened. Associated symptoms included lightheadedness, dizziness, blurry vision, decreased appetite recently. She denies chest pain, shortness of breath, n/v/d, recent illnesses. Of note, aside from the wellbutrin, patient is also on venlafaxine, olanzapine which have seizures as side effects. Patient has had several stressors at home, most recently breaking up with her boyfriend in the last several days. The patient states that she had no purposeful intent to harm herself when taking the increased doses of wellbutrin. Patient states that she has feelings of hopelessness, decreased interest in things she would normally enjoy, fees tired during the day, does not sleep well. She denies use of illicit drug use or IV drug use. She does have history of suicidal ideation and has been admitted to [facility] in the past. Patient overdosed in the past on ASA when she was 15 years old. When she did this she said she wanted to "sleep for a while", she states that she did not wish to kill herself then. In the ER, VS were stable. She was alert, respirations were even and unlabored. She was oriented x 3 but could not recall the events earlier completely. No additional seizure activity was noted to have occured. CXR was wnl. Labs were unremarkable. Half-life of wellbutrin is 21 hours. Patient was admitted for wellbutrin overdose, close monitoring for further seizures. Psychiatry is consulted and will see 07/29/19. REVIEW OF SYSTEMS: CONSTITUTIONAL: Denies unexplained weight gain or weight loss,fever, night sweats EYES: Denies eye drainage, eye pain, visual changes, dry/irritated eye EARS, NOSE, MOUTH, THROAT: Denies difficulty hearing, ringing in ears, mouth sores, loose teeth, sore throat, facial numbness or pain NECK: Denies swollen glands CARDIOVASCULAR: Denies irregular heartbeat,chest pains, swelling of feet or legs, pain in legs with walking RESPIRATORY: Denies shortness of breath, night sweats, wheezing, sputum production, oxygen at home, coughing up blood, cough lasting > 1 month GASTROINTESTINAL: Denies abdominal pain, constipation, bloody stool, diarrhea, heartburn, nausea, vomiting GENITOURINARY: Denies painful urination, bloody urine, frequent urination, urgency, leaking urine, impotence MUSCULOSKELETAL: Denies joint pain, muscle pain, leg swelling INTEGUMENTARY: Denies rash, itching, new skin lesion, change in existing skin lesion, hair loss or increase, breast changes. NEUROLOGICAL: Denies headaches, difficulty walking, numbness or tingling PSYCHIATRIC: Denies recurrent bad thoughts,hallucinations PAST MEDICAL HISTORY: 1. Tobacco use on wellbutrin 2. Depression 3. Hx of alcohol abuse, previously in rehabilitation 4. Bipolar disorder 5. Depression 6. Anxiety 7. PTSD 8. Hx of suicidal ideation 9. Pyschoactive substance use disorder PAST SURGICAL HISTORY: 1. tubal ligation 2. partial hysterectomy SOCIAL HISTORY: Smoker for 20 years 1 PDD, quit 03/20/19. Hx of alcohol abuse- last drink 4 months ago. Was in rehab from 03/20/19-07/03/19. Patient has had inpatient mental health admissions in the past. PCP- Kleber Chaudhari, Counselor and psychiat rist. She is currently in process to try and get into outpatient addiction program. Lives with her daughter. She is a full code. FAMILY HISTORY: Father: no medical problems, alive. Mother: no medical problems, alive. Patient states there is no medical problems in her family. ALLERGIES: Please see below. CURRENT MEDICATIONS: Please see below PHYSICAL EXAMINATION: CONSTITUTIONAL: No acute distress, resting comfortably, AAO x 3 EYES: PERRLA, EOM intact HENT, MOUTH: Normocephalic, atraumatic, moist mucous membranes, NECK: SUPPLE, no JVD, no lymphadenopathy, no carotid bruit CV: Regular rate and rhythm, S1S2 normal, no murmurs/rubs/gallops RESPIRATORY: Clear to auscultation bilaterally, no rales/rhonchi/wheezes GI: BS positive in 4 quadrants, soft, nontender, nondistended, no rebound or guarding, no organomegaly : Deferred MUSCULOSKELETAL: Normal ROM. No cyanosis, clubbing, swelling, joint deformity, extremity edema INTEGUMENTARY: Intact, no rashes, no lesions, no erythema NEUROLOGIC: Cranial Nerves II-XII are intact, no focal deficits PSYCHIATRIC: Flat affect LABORATORY DATA: Please see below IMAGING: CXR: There is no acute cardiopulmonary disease. ASSESSMENT: 38 y/o F admitted for seizure s/p wellbutrin overdose. PLAN: 1. Seizure likely 2/2 to wellbutrin overdose. Wellbutrin lowers seizure threshold. Holding home venlafaxine, olanzapine and hydroxyzine. Unknown amount of pills ingested, half life 21 hours. Seizure precautions in place, IVFs at 100 cc/hr. F/u daily labs 2. Wellbutrin overdose. Pt denies suicidal ideation, but does have history of brink icidal ideation and overdose in the past. Psychiatry consulted. 3. Depression/anxiety/PTSD/bipolar disorder. Multiple acute stressors at home. Holding many home meds at this time, can resume late tomorrow AM. Pyschiatry consulted. 4. Tobacco use. C/w nicotine patch. 5. Alcohol abuse history. States to have gotten out of rehab in 06/2019. C/w home acambrosate TID, naltrexone. 6. DVT px. SCDs. DISPOSITION: Plan is continued treatment as mentioned above. Plan is either discharge home or IM when medically cleared. Psychiatry (Dr. Bermudez) to evaluate in the AM. Vital Signs Vital Signs Date Time Temp Pulse Resp B/P (MAP) Pulse Ox O2 Delivery O2 Flow Rate FiO2 07/29/19 12:12 98.7 07/29/19 12:02 103 137/73 07/29/19 11:46 14 95 Room Air Laboratory Data Labs 24H Laboratory Tests 2 07/29/19 10:48: Immature Granulocyte % (Auto) 0.4, Neutrophils (%) (Auto) 77.4H, Lymphocytes (%) (Auto) 8.4L, Monocytes (%) (Auto) 11.7H, Eosinophils (%) (Auto) 1.5, Basophils (%) (Auto) 0.6, Neutrophils # (Auto) 10.1H, Lymphocytes # (Auto) 1.1L, Monocytes # (Auto) 1.5H, Eosinophils # (Auto) 0.2, Basophils # (Auto) 0.1, Nucleated Red Blood Cells % (auto) 0.0, Anion Gap 10, Glomerular Filtration Rate > 60.0, Calcium Level 9.2, Total Bilirubin 0.3, Direct Bilirubin 0.1, Aspartate Amino Transf (AST/SGOT) 22, Alanine Aminotransferase (ALT/SGPT) 26, Alkaline Phosphatase 59, Total Creatine Kinase 346H, Total Protein 7.7, Albumin 4.1, Albumin/Globulin Ratio 1.14, Thyroid Stimulating Hormone (TSH) 1.240, Human Chorionic Gonadotropin, Qual NEGATIVE, Salicylates Level < 1.7L, Acetaminophen Level < 2.0L, Ethyl Alcohol Level < 0.003 07/29/19 11:02: Urine Opiates Screen NEGATIVE, Urine Methadone Screen NEGATIVE, Urine Barbiturates Screen NEGATIVE, Urine Phencyclidine Screen NEGATIVE, Urine Amphetamines Screen NEGATIVE, Urine Benzodiazepines Screen NEGATIVE, Urine Cocaine Metabolite Screen NEGATIVE, Urine Cannabinoids Screen NEGATIVE CBC/BMP Laboratory Tests 07/29/19 10:48 Home Medications Scheduled Acamprosate Calcium (Acamprosate Calcium) 333 Mg Tablet.dr, 333 MG PO TID Bupropion Hcl (Bupropion HCl Sr) 150 Mg Tab.sr.12h, 150 MG PO DAILY Gabapentin (Gabapentin) 300 Mg Capsule, 300 MG PO TID Naltrexone HCl (Naltrexone HCl) 50 Mg Tablet, 100 MG PO QHS Nicotine (Nicotine Patch) 21 Mg/24 Hr Patch.td24, 21 MG TOP DAILY Olanzapine (Olanzapine) 15 Mg Tablet, 15 MG PO QHS Trazodone HCl (Trazodone HCl) 100 Mg Tablet, 100 MG PO QHS Venlafaxine HCl (Venlafaxine HCl ER) 150 Mg Cap.er.24h, 150 MG PO DAILY Scheduled PRN Hydroxyzine HCl (Hydroxyzine HCl) 25 Mg Tablet, 25 MG PO QID PRN for ANXIETY Allergies Coded Allergies: sertraline (Verified Adverse Reaction, Severe, increased s/i, 03/10/19) A-FIB/CHADSVASC A-FIB History Current/History of A-Fib/PAF?: No Current PO Anticoag Therapy: No Age/Risk Factor Scoring CHADSVASC: CHADSVASC Response (Comments) Value Age Risk Factor Age < 65 years old 0 Gender Risk Factor Female 1 Hx of CHF No 0 Hx of HTN No 0 Hx of Stroke/TIA/or VTE No 0 Hx of Diabetes No 0 Hx of Vascular Disease No 0 Total 1 Treatment Treatment ordered: NONE (scd) Amy Santoro MD July 29, 2019 12:40
[2019-07-29 14:26] LABS: MAGNESIUM LEVEL 2.1 MG/DL (1.8-2.4); PHOSPHORUS LEVEL 2.1 MG/DL (2.5-4.9)
[2019-07-29 14:45] VITALS: BP 104/58
[2019-07-29] MEDS: ACAMPROSATE CALCIUM 333 MG TABLET (CAMPRAL) PO SCH ×2 (15:53→21:18)
[2019-07-29] MEDS: NS 1,000 ML IV SCH ×2 (15:54→22:32)
[2019-07-29] MEDS: GABAPENTIN 300 MG CAP PO SCH ×2 (15:54→21:18)
[2019-07-29 21:00] VITALS: BP 111/63
[2019-07-29] MEDS ORDERED: NALTREXONE 50 MG TAB PO SCH (21:00)
[2019-07-29 22:00] VITALS: BP 111/63
[2019-07-30 05:30] VITALS: BP 113/66
[2019-07-30 06:00] VITALS: BP 113/66
[2019-07-30 06:12] VITALS: BP 113/66
[2019-07-30] MEDS: NS 1,000 ML IV SCH ×2 (06:18→14:10)
[2019-07-30 06:25] VITALS: BP 151/83
[2019-07-30 06:44] LABS: HEMATOCRIT 39.3 % (36.0-47.0); MEAN CORPUSCULAR HEMOGLOBIN 30.2 pg (27.0-33.0); MEAN CORPUSCULAR HGB CONC 33.1 g/dl (32.0-36.5); MEAN CORPUSCULAR VOLUME 91.4 fl (80.0-96.0); PLATELET COUNT, AUTOMATED 295 10^3/uL (150-450); WHITE BLOOD COUNT 7.4 10^3/uL (4.0-10.0)
[2019-07-30 07:11] LABS: ALBUMIN 3.4 GM/DL (3.2-5.2); ALT/SGPT 20 U/L (12-78); BILIRUBIN,TOTAL 0.3 MG/DL (0.2-1.0); BLOOD UREA NITROGEN 6 MG/DL (7-18); CALCIUM LEVEL 8.4 MG/DL (8.5-10.1); CARBON DIOXIDE LEVEL 25 MEQ/L (21-32); CHLORIDE LEVEL 110 MEQ/L (98-107); CREATININE FOR GFR 0.64 MG/DL (0.55-1.30); GLOMERULAR FILTRATION RATE > 60.0 (>60); GLUCOSE, FASTING 118 MG/DL (70-100); POTASSIUM SERUM 3.8 MEQ/L (3.5-5.1); SODIUM LEVEL 141 MEQ/L (136-145)
[2019-07-30] MEDS ORDERED: NICOTINE 21MG/24HR 1 EA TRANSDERMAL TOP SCH (09:00)
--- NOTE | 2019-07-30 09:50 | ECGEPIP ---
[facility] Test Date: 2019-07-30 Pat Name: NAYANA MAURO Department: Room: [place] [address] Gender: Female [place] Custodian: CHRISTINA : 1980 Requested By: VICENTE CARTER D.O. Order Number: [id number] Reading MD: Reece Harris Measurements Intervals [place] Rate: 85 P: 50 MA: 160 QRS: 26 QRSD: 88 T: 64 QT: 360 QTc: 430 Interpretive Statements SINUS RHYTHM Decreased heart rate compared with 07/29/2019 at 1058 hrs. Electronically Signed on 07-30-2019 9:50:23 EDT by Reece Harris
[2019-07-30] MEDS: GABAPENTIN 300 MG CAP PO SCH ×2 (10:03→15:44)
[2019-07-30] MEDS: ACAMPROSATE CALCIUM 333 MG TABLET (CAMPRAL) PO SCH ×2 (10:03→15:44)
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
--- NOTE | 2019-07-30 11:16 | ECGEPIP ---
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
[2019-07-30 14:00] VITALS: BP 111/81
--- NOTE | 2019-07-30 15:06 | DS.PDOC ---
Discharge Summary General Date of Admission July 29, 2019 at 13:39 Date of Discharge 07/30/19 Primary Care Physician: Kleber Chaudhari M.D. Attending Physician: Amy Santoro MD Specialist/Consultants Involve: RERE BERMUDEZ DO Discharge Summary HISTORY OF PRESENT ILLNESS: The patient is a 38-year-old female with a past medical history of depression, anxiety, alcohol abuse, PTSD, history of suicidal ideation, psychoactive substance abuse disorder who presented to [facility] after having a witnessed seizure by her daughter at home. As per patient to was awake alert and oriented 3 on exam, she states that she has been taking more Wellbutrin on purpose for "a while to get a buzz". She says she has been doing this for several months at least. She does it in splurges because she does not have enough to do it every day. This morning she says she cannot remember anything from the incident of concern, could not say how many pills she took exactly but states that she "found another bottle with pills in it" and took those. Her daughter was present when the patient had a seizure and she fell down to the ground. There was generalized tremoring, loss of consciousness noted. No loss of bowel or bladder, tongue biting, no hitting of her head was noted. Next thing she remembers she was arguing with her mom and sister. She was confused as to what just happened. Associated symptoms included lightheadedness, dizziness, blurry vision, decreased appetite recently. She denies chest pain, shortness of breath, n/v/d, recent illnesses. Of note, aside from the wellbutrin, patient is also on venlafaxine, olanzapine which have seizures as side effects. Patient has had several stressors at home, most recently breaking up with her boyfriend in the last several days. The patient states that she had no purposeful intent to harm herself when taking the increased doses of wellbutrin. Patient states that she has feelings of hopelessness, decreased interest in things she would normally enjoy, fees tired during the day, does not sleep well. She denies use of illicit drug use or IV drug use. She does have history of suicidal ideation and [facility]. Patient overdosed in the past on ASA when she was 15 years old. When she did this she said she wanted to "sleep for a while", she states that she did not wish to kill herself then. In the ER, VS were stable. She was alert, respirations were even and unlabored. She was oriented x 3 but could not recall the events earlier completely. No additional seizure activity was noted to have occured. CXR was wnl. Labs were unremarkable. Half-life of wellbutrin is 21 hours. Patient was admitted for wellbutrin overdose, close monitoring for further seizures. Psychiatry is consulted and will see 07/29/19. HOSPITAL COURSE: The patient had no further seizure activity after admission. She was evaluated by psychiatry (Dr. Bermudez) on 07/29/09 who confirmed her misuse of Wellbutrin. It was recommended not continuing wellbutrin after discharge. This was discussed with patient. At the time of discharge on 07/30/19 patient denied chest pain, sob, n/v/d, fevers, chills, shaking, tremoring, diaphoresis. REVIEW OF SYSTEMS: Neg except for what is mentioned above. PAST MEDICAL HISTORY: 1. Tobacco use on wellbutrin 2. Depression 3. Hx of alcohol abuse, previously in rehabilitation 4. Bipolar disorder 5. Depression 6. Anxiety 7. PTSD 8. Hx of suicidal ideation 9. Pyschoactive substance use disorder PAST SURGICAL HISTORY: 1. tubal ligation 2. partial hysterectomy SOCIAL HISTORY: Smoker for 20 years 1 PDD, quit 03/20/19. Hx of alcohol abuse- last drink 4 months ago. Was in rehab from 03/20/19-07/03/19. Patient has had inpatient mental health admissions in the past. PCP- Kleber Chaudhari, Counselor and psychiatrist. She is currently in process to try and get into outpatient addiction program. Lives with her daughter. She is a full code. FAMILY HISTORY: Father: no medical problems, alive. Mother: no medical problems, alive. Patient states there is no medical problems in her family. ALLERGIES: Please see below. CURRENT MEDICATIONS: Please see below PHYSICAL EXAMINATION: CONSTITUTIONAL: No acute distress, resting comfortably, AAO x 3 EYES: PERRLA, EOM intact HENT, MOUTH: Normocephalic, atraumatic, moist mucous membranes, NECK: SUPPLE, no JVD, no lymphadenopathy, no carotid bruit CV: Regular rate and rhythm, S1S2 normal, no murmurs/rubs/gallops RESPIRATORY: Clear to auscultation bilaterally, no rales/rhonchi/wheezes GI: BS positive in 4 quadrants, soft, nontender, nondistended, no rebound or guarding, no organomegaly : Deferred MUSCULOSKELETAL: Normal ROM. No cyanosis, clubbing, swelling, joint deformity, extremity edema INTEGUMENTARY: Intact, no rashes, no lesions, no erythema NEUROLOGIC: Cranial Nerves II-XII are intact, no focal deficits PSYCHIATRIC: Flat affect LABORATORY DATA: Please see below IMAGING: CXR: There is no acute cardiopulmonary disease. ASSESSMENT: 38 y/o F admitted for seizure s/p wellbutrin overdose. PLAN: 1. Seizure likely 2/2 to wellbutrin overdose. Recommending stopping Wellbutrin after discharged. Dicussed with patient. No other history of seizures so patient should be ok to resume other home meds. 2. Wellbutrin overdose. Admits to abusing use of this medication for a "high". Psychiatry evaluated. Recommending stopping Wellbutrin after discharged. 3. Depression/anxiety/PTSD/bipolar disorder. Multiple acute stressors at home. C/w home meds except wellbutrin. F/u with PCP after weekend, behavioral health. 4. Tobacco use. C/w nicotine patch. 5. Alcohol abuse history. States to have gotten out of rehab in 06/2019. C/w home acambrosate TID, naltrexone. DISPOSITION: Plan is discharge home with the recommendations made above. TOTAL DISCHARGE TIME: 35 mins Vital Signs/I&Os Vital Signs Date Time Temp Pulse Resp B/P (MAP) Pulse Ox O2 Delivery O2 Flow Rate FiO2 07/30/19 14:00 98.5 91 18 111/81 (91) 95 Room Air I&O- Last 24 Hours up to 6 AM 07/30/19 05:59 Intake Total 300 ml Output Total 0 ml Balance 300 ml Laboratory Data Labs 24H Laboratory Tests 2 07/30/19 06:22: Nucleated Red Blood Cells % (auto) 0.0, Anion Gap 6L, Glomerular Filtration Rate > 60.0, Calcium Level 8.4L, Total Bilirubin 0.3, Aspartate Amino Transf (AST/SGOT) 17, Alanine Aminotransferase (ALT/SGPT) 20, Alkaline Phosphatase 47, Total Creatine Kinase 304H, Total Protein 7.0, Albumin 3.4, Albumin/Globulin Ratio 0.94L CBC/BMP Laboratory Tests 07/30/19 06:22 Discharge Medications Scheduled Acamprosate Calcium (Acamprosate Calcium) 333 Mg Tablet.dr, 333 MG PO TID, (Reported) Bupropion Hcl (Bupropion HCl Sr) 150 Mg Tab.sr.12h, 150 MG PO DAILY, (Reported) Gabapentin (Gabapentin) 300 Mg Capsule, 300 MG PO TID, (Reported) Naltrexone HCl (Naltrexone HCl) 50 Mg Tablet, 100 MG PO QHS, (Reported) Nicotine (Nicotine Patch) 21 Mg/24 Hr Patch.td24, 21 MG TOP DAILY, (Reported) Olanzapine (Olanzapine) 15 Mg Tablet, 15 MG PO QHS, (Reported) Trazodone HCl (Trazodone HCl) 100 Mg Tablet, 100 MG PO QHS, (Reported) Venlafaxine HCl (Venlafaxine HCl ER) 150 Mg Cap.er.24h, 150 MG PO DAILY, (Reported) Scheduled PRN Hydroxyzine HCl (Hydroxyzine HCl) 25 Mg Tablet, 25 MG PO QID PRN for ANXIETY, (Reported) Allergies Coded Allergies: sertraline (Verified Adverse Reaction, Severe, increased s/i, 03/10/19) Amy Santoro MD July 30, 2019 15:06
== END 2019-07-30 16:39 | disposition home or self-care (01) | DRG 812 ==
LOC: M ED 10:34 → M ED INP 13:39 → M MSPAV 14:45
PROVIDERS: ADMIT Internal Medicine; ATTEND Internal Medicine
DX: T43.291A Poisoning by other antidepressants, accidental (unintentional), initial encounter (principal); R56.9 Unspecified convulsions; F33.42 Major depressive disorder, recurrent, in full remission; F41.9 Anxiety disorder, unspecified; F10.21 Alcohol dependence, in remission; F43.10 Post-traumatic stress disorder, unspecified; F19.10 Other psychoactive substance abuse, uncomplicated; Z87.891 Personal history of nicotine dependence; Z79.899 Other long term (current) drug therapy; Z88.8 Allergy status to other drugs, medicaments and biological substances

== ENCOUNTER → 2019-08-01 | Outpatient (CLI) | payer MEDICAID ==
[~2019-08-01] MED LIST changes: +ACAM0.05 PO; +BUPR150T5 PO; +GABA-843 PO; +HYDR-3363 PO; +NICO21DI38 TOP; +OLAN15TA PO; +VENL150C43 PO
== END ==
LOC: M OUTALCOH 08:02
PROVIDERS: ATTEND Psychiatry & Neurology Addiction Medicine
DX: Z13.9 Encounter for screening, unspecified (principal); F10.20 Alcohol dependence, uncomplicated

== ENCOUNTER → 2019-09-12 | Outpatient (CLI) | payer OTHER ==
[2019-09-12 16:28] LABS: PLATELET COUNT, AUTOMATED 285 10^3/uL (150-450)
[2019-09-12 16:37] LABS: INR 1.15; PARTIAL THROMBOPLASTIN TIME 33.3 SECONDS (25.0-38.4); PROTHROMBIN TIME 14.4 SECONDS (11.8-14.0)
== END ==
LOC: M WUC 14:09
PROVIDERS: ATTEND Physician Assistant
DX: Z01.812 Encounter for preprocedural laboratory examination (principal); M47.817 Spondylosis without myelopathy or radiculopathy, lumbosacral region

== ENCOUNTER → 2019-09-15 | Outpatient (CLI) | payer OTHER | LOC: M LABSMTC 10:26 | PROVIDERS: ATTEND Physical Medicine & Rehabilitation | DX: Z11.59 Encounter for screening for other viral diseases (principal); Z03.89 Encounter for observation for other suspected diseases and conditions ruled out ==

== ENCOUNTER 2019-09-18 08:45 | Outpatient (RCR) | payer MEDICAID | END 2019-09-19 | LOC: M OUTALCOH 08:45 | PROVIDERS: ATTEND Psychiatry & Neurology Addiction Medicine | DX: F10.20 Alcohol dependence, uncomplicated (principal) ==

== ENCOUNTER 2019-10-11 08:30 | Outpatient (RCR) | payer MEDICAID | END 2019-10-20 | LOC: M OUTALCOH 08:30 | PROVIDERS: ATTEND Psychiatry & Neurology Addiction Medicine | DX: F10.20 Alcohol dependence, uncomplicated (principal); F17.200 Nicotine dependence, unspecified, uncomplicated ==

== ENCOUNTER 2019-11-16 10:30 | Outpatient (RCR) | payer MEDICAID | END 2019-11-20 | LOC: M OUTALCOH 10:30 | PROVIDERS: ATTEND Psychiatry & Neurology Addiction Medicine | DX: F10.20 Alcohol dependence, uncomplicated (principal); F17.200 Nicotine dependence, unspecified, uncomplicated ==

== ENCOUNTER 2019-11-29 10:23 | Outpatient (RCR) | payer MEDICAID | END 2019-12-20 | LOC: M OUTALCOH 10:23 | PROVIDERS: ATTEND Psychiatry & Neurology Addiction Medicine | DX: F10.20 Alcohol dependence, uncomplicated (principal); F17.200 Nicotine dependence, unspecified, uncomplicated ==

== ENCOUNTER → 2022-02-16 | Outpatient (CLI) | payer MEDICAID, OTHER ==
[~2022-02-16] MED LIST changes: +BUPR-71 PO; -BUPR150T5 PO; +CYAN500T14 PO; -CYAN500T8 PO; +GABA-282 PO; -GABA-843 PO; -LISI-542 PO; -LISI2.5T2; -LISI2.5T2 PO; +LISI2.5T9; +LISI2.5T9 PO; +LISI5TAB11 PO; -OLAN15TA PO; +OLAN15TA13 PO; +OMEP40CA4 PO; -OMEP40CA97 PO; +RISP-10 PO; -RISP3TAB3 PO
[2022-02-16 15:40] LABS: BASO # 0.1 10^3/uL (0.0-0.2); BASO % 1.2 % (0.0-1.0); EOS # 0.3 10^3/uL (0.0-0.5); HEMATOCRIT 48.9 % (36.0-47.0); HEMOGLOBIN 16.2 g/dl (12.0-15.5); LYMPH % 32.1 % (24.0-44.0); MEAN CORPUSCULAR HEMOGLOBIN 32.9 pg (27.0-33.0); MEAN CORPUSCULAR HGB CONC 33.1 g/dl (32.0-36.5); MEAN CORPUSCULAR VOLUME 99.4 fl (80.0-96.0); MONO % 10.3 % (2.0-8.0); NEUTROPHILS % 52.8 % (36.0-66.0); PLATELET COUNT, AUTOMATED 337 10^3/uL (150-450); RED BLOOD COUNT 4.92 10^6/uL (4.00-5.40); WHITE BLOOD COUNT 9.4 10^3/uL (4.0-10.0)
[2022-02-16 18:25] LABS: CHLORIDE LEVEL 103 MMOL/L (98-107); POTASSIUM SERUM 4.6 MMOL/L (3.5-5.1); SODIUM LEVEL 139 MMOL/L (136-145)
[2022-02-16 18:27] LABS: ALBUMIN 3.8 G/DL (3.2-5.2); CARBON DIOXIDE LEVEL 25 MMOL/L (20-31); FREE T4 1.11 NG/DL (0.89-1.76); VITAMIN B12 LEVEL 440 PG/ML (211-911)
[2022-02-16 18:28] LABS: THYROID STIMULATING HORMONE 1.099 uIU/ML (0.55-4.78)
[2022-02-16 18:32] LABS: BLOOD UREA NITROGEN 8 MG/DL (9-23); TRIGLYCERIDES LEVEL 151 MG/DL (<150)
[2022-02-16 18:33] LABS: ALKALINE PHOSPHATASE 52 U/L (46-116); CALCIUM LEVEL 9.2 MG/DL (8.5-10.1); GLUCOSE, FASTING 89 MG/DL (60-100)
[2022-02-16 18:34] LABS: ALT/SGPT 27 U/L (7.0-40); AST/SGOT 31 U/L (<34); BILIRUBIN,TOTAL 0.3 MG/DL (0.3-1.2); TOTAL PROTEIN 7.2 G/DL (5.7-8.2)
[2022-02-16 18:35] LABS: CHOLESTEROL LEVEL 197 MG/DL (<200); CHOLESTEROL RISK RATIO 3.42 (<5); CREATININE FOR GFR 0.56 MG/DL (0.55-1.30); GLOMERULAR FILTRATION RATE > 60.0 (>58); HDL CHOLESTEROL 57.5 MG/DL (>40); LDL CHOLESTEROL 109.3 MG/DL (<100); NON-HDL-C 140 MG/DL
== END ==
LOC: M PLALAB 14:01
PROVIDERS: ATTEND Physician Assistant Medical
DX: F10.20 Alcohol dependence, uncomplicated (principal)

== ENCOUNTER → 2022-03-11 | Outpatient (CLI) | payer OTHER | LOC: M WHC 16:23 | PROVIDERS: ATTEND Physician Assistant Medical | DX: Z12.31 Encounter for screening mammogram for malignant neoplasm of breast (principal) ==

== ENCOUNTER → 2022-03-25 | Outpatient (CLI) | payer OTHER | LOC: M WHC 08:06 | PROVIDERS: ATTEND Physician Assistant Medical | DX: M47.818 Spondylosis without myelopathy or radiculopathy, sacral and sacrococcygeal region (principal); Z12.31 Encounter for screening mammogram for malignant neoplasm of breast ==

== ENCOUNTER 2023-04-27 10:57 | Emergency (ER) | payer OTHER, SELFPAY ==
[~2023-04-27] VITALS: Ht 167.6 cm; Wt 74.0 kg
[2023-04-27] MEDS ORDERED: AZO-95TA3 PO (11:17)
[2023-04-27 11:51] LABS: BASO # 0.1 10^3/uL (0.0-0.2); BASO % 0.8 % (0.0-1.0); EOS # 0.2 10^3/uL (0.0-0.5); EOS % 1.4 % (0.0-3.0); HEMATOCRIT 50.4 % (36.0-47.0); HEMOGLOBIN 17.5 g/dl (12.0-15.5); LYMPH # 2.9 10^3/uL (1.5-5.0); LYMPH % 26.6 % (24.0-44.0); MEAN CORPUSCULAR HEMOGLOBIN 33.4 pg (27.0-33.0); MEAN CORPUSCULAR HGB CONC 34.7 g/dl (32.0-36.5); MEAN CORPUSCULAR VOLUME 96.2 fl (80.0-96.0); MONO # 1.3 10^3/uL (0.0-0.8); NEUTROPHILS # 6.5 10^3/uL (1.5-8.5); NEUTROPHILS % 58.8 % (36.0-66.0); PLATELET COUNT, AUTOMATED 285 10^3/uL (150-450); RED BLOOD COUNT 5.24 10^6/uL (4.00-5.40)
[2023-04-27 12:11] LABS: LIPASE 45 U/L (12-53)
[2023-04-27 12:13] LABS: ALKALINE PHOSPHATASE 52 U/L (46-116); ALT/SGPT 48 U/L (7.0-40); AST/SGOT 50 U/L (<34); BILIRUBIN,DIRECT 0.3 MG/DL (<0.4); BILIRUBIN,TOTAL 0.8 MG/DL (0.3-1.2); BLOOD UREA NITROGEN 7 MG/DL (9-23); CALCIUM LEVEL 9.2 MG/DL (8.5-10.1); CARBON DIOXIDE LEVEL 23 MMOL/L (20-31); CHLORIDE LEVEL 105 MMOL/L (98-107); CREATININE FOR GFR 0.64 MG/DL (0.55-1.30); GLOMERULAR FILTRATION RATE > 60.0 (>58); GLUCOSE, FASTING 129 MG/DL (60-100); HCG, SERUM QUALITATIVE NEGATIVE (NEGATIVE); POTASSIUM SERUM 3.6 MMOL/L (3.5-5.1); SODIUM LEVEL 137 MMOL/L (136-145); TOTAL PROTEIN 7.3 G/DL (5.7-8.2)
[2023-04-27] MEDS ORDERED: ISOVUE-370 76% 100ML VIAL As Ordered ONE (14:03)
[2023-04-27] MEDS: ONDANSETRON 4MG 2ML VIAL IV ONE (14:12)
[2023-04-27] MEDS: NS 1,000 ML IV ONE (14:12)
[2023-04-27] MEDS: cefTRIAXone SOD 1 GM in D5W MINI-BAG PLUS 50 ML IV ONE (14:12)
[2023-04-27 15:23] VITALS: BP 139/87; TEMP 98; O2SAT 100
[2023-04-27] MEDS ORDERED: PROM12.56 PO (15:25)
[2023-04-27] MEDS ORDERED: CIPR-249 PO (15:25)
== END 2023-04-27 15:38 | disposition home or self-care (01) ==
LOC: M ED 10:57
DX: N39.0 Urinary tract infection, site not specified (principal); F17.210 Nicotine dependence, cigarettes, uncomplicated; Z88.8 Allergy status to other drugs, medicaments and biological substances; Z79.2 Long term (current) use of antibiotics; Z79.899 Other long term (current) drug therapy
CPT/HCPCS: 74177; 80048; 80076; 81001; 83605; 83690; 84703; 85025; 87040; 87086; 96365; 96375; 99284; J0696; J2405; Q9967

== ENCOUNTER 2023-05-01 15:56 | Emergency (ER) | payer OTHER, SELFPAY ==
[~2023-05-01 15:56] MED LIST changes: +AZO-95TA3 PO; +CIPR-249 PO; +PROM12.56 PO
[2023-05-01] MEDS ORDERED: AMOX875T2 PO (17:14)
[2023-05-01 17:41] VITALS: BP 117/66; TEMP 97.8; O2SAT 98
[2023-05-01] MEDS: BOOSTRIX VACCINE (TETANUS/DIPHTH/ACEL. PERTUSSIS) 0.5ML SYR IM ONE (17:45)
== END 2023-05-01 17:56 | disposition home or self-care (01) ==
LOC: M ED 15:56
DX: F17.210 Nicotine dependence, cigarettes, uncomplicated (principal); F10.10 Alcohol abuse, uncomplicated; Z23 Encounter for immunization

== ENCOUNTER → 2023-12-23 | Outpatient (CLI) | payer OTHER ==
[~2023-12-23] MED LIST changes: +AMOX875T2 PO; +GABA-1172 PO; +GABA-1490 PO; -GABA-282 PO; -GABA600T4 PO; -OLAN15TA13 PO; +OLAN15TA69 PO; -RISP-10 PO; +RISP3TAB77 PO
[2023-12-23 17:38] LABS: BASO # 0.1 10^3/uL (0.0-0.2); BASO % 0.9 % (0.0-1.0); EOS # 0.2 10^3/uL (0.0-0.5); EOS % 1.8 % (0.0-3.0); HEMATOCRIT 51.5 % (36.0-47.0); LYMPH # 2.3 10^3/uL (1.5-5.0); LYMPH % 22.3 % (24.0-44.0); MEAN CORPUSCULAR HEMOGLOBIN 33.9 pg (27.0-33.0); MEAN CORPUSCULAR VOLUME 102.6 fl (80.0-96.0); MONO # 1.5 10^3/uL (0.0-0.8); MONO % 14.2 % (2.0-8.0); NEUTROPHILS # 6.2 10^3/uL (1.5-8.5); NEUTROPHILS % 60.4 % (36.0-66.0); PLATELET COUNT, AUTOMATED 264 10^3/uL (150-450); RED BLOOD COUNT 5.02 10^6/uL (4.00-5.40); WHITE BLOOD COUNT 10.2 10^3/uL (4.0-10.0)
[2023-12-23 18:10] LABS: ALBUMIN 3.9 G/DL (3.2-5.2); ALKALINE PHOSPHATASE 55 U/L (46-116); ALT/SGPT 22 U/L (7.0-40); AST/SGOT 21 U/L (<34); BILIRUBIN,TOTAL 0.6 MG/DL (0.3-1.2); BLOOD UREA NITROGEN 8 MG/DL (9-23); CALCIUM LEVEL 10.1 MG/DL (8.5-10.1); CARBON DIOXIDE LEVEL 26 MMOL/L (20-31); CHLORIDE LEVEL 106 MMOL/L (98-107); CREATININE FOR GFR 0.59 MG/DL (0.55-1.30); GLOMERULAR FILTRATION RATE > 60.0 (>58); GLUCOSE, FASTING 73 MG/DL (60-100); POTASSIUM SERUM 3.8 MMOL/L (3.5-5.1); SODIUM LEVEL 139 MMOL/L (136-145); TOTAL PROTEIN 7.5 G/DL (5.7-8.2)
[2023-12-23 18:14] LABS: THYROID STIMULATING HORMONE 0.845 uIU/ML (0.55-4.78)
[2023-12-29 20:42] LABS: LYME TOTAL ANTIBODY CIA <= 0.90 Index (<=0.90)
== END ==
LOC: M WUC 11:03
PROVIDERS: ATTEND Nurse Practitioner Family
DX: M79.10 Myalgia, unspecified site (principal)

== ENCOUNTER → 2023-12-31 | Outpatient (REF) | payer OTHER ==
[2023-12-31 13:14] LABS: APPEARANCE, URINE CLEAR (CLEAR); BACTERIA, URINE AUTO NEGATIVE (NEGATIVE); BILIRUBIN, URINE AUTO NEGATIVE (NEGATIVE); BLOOD, URINE BLOOD NEGATIVE (NEGATIVE); COLOR, URINE STRAW (YELLOW); GLUCOSE, URINE (UA) AUTO 3+ mg/dL (NEGATIVE); KETONE, URINE AUTO NEGATIVE (NEGATIVE); LEUKOCYTE ESTERASE, URINE AUTO NEGATIVE (NEGATIVE); NITRITE, URINE AUTO NEGATIVE (NEGATIVE); PROTEIN, URINE AUTO NEGATIVE (NEGATIVE); RBC, URINE AUTO 0 /HPF (0-3); SPECIFIC GRAVITY URINE AUTO 1.005 (1.002-1.035); SQUAMOUS EPITHELIAL CELL UR AU 2 /HPF (0-6); UROBILINOGEN, URINE AUTO 0.2 mg/dL (0.0-2.0); WBC, URINE AUTO 0 /HPF (0-3)
== END ==
LOC: M SFHCPLAZ 12:38
PROVIDERS: ATTEND Family Medicine
DX: R30.0 Dysuria (principal); R05.9 Cough, unspecified

== ENCOUNTER 2024-08-09 11:49 | Emergency (ER) | payer OTHER, SELFPAY ==
[~2024-08-09] VITALS: Ht 162.6 cm; Wt 71.1 kg
[~2024-08-09 11:49] MED LIST changes: -AMBI5TAB PO; +ZOLP-532 PO
[2024-08-09 12:29] VITALS: BP 154/99; TEMP 97.6; O2SAT 99
== END 2024-08-09 14:10 | disposition left against medical advice (07) ==
LOC: M ED 11:49
DX: Z53.21 Procedure and treatment not carried out due to patient leaving prior to being seen by health care provider (principal)

== ENCOUNTER 2024-10-09 21:29 | Observation (INO) | payer OTHER ==
[~2024-10-09] VITALS: Ht 165.1 cm; Wt 70.4 kg
[2024-10-09] MEDS ORDERED: ISOVUE-370 76% 100 ML VIAL As Ordered ONE (21:42)
[2024-10-09 22:10] VITALS: BP 144/82; TEMP 99.1; O2SAT 97
[2024-10-09 22:25] VITALS: BP 136/84; TEMP 99; O2SAT 96
[2024-10-09 22:41] VITALS: BP 119/80; TEMP 98.6; O2SAT 95
[2024-10-09 23:08] LABS: BASO # 0.1 10^3/uL (0.0-0.2); BASO % 1.2 % (0.0-1.0); EOS # 0.2 10^3/uL (0.0-0.5); EOS % 2.1 % (0.0-3.0); LYMPH # 3.2 10^3/uL (1.5-5.0); LYMPH % 41.1 % (24.0-44.0); MONO # 1.0 10^3/uL (0.0-0.8); MONO % 12.5 % (2.0-8.0); NEUTROPHILS # 3.3 10^3/uL (1.5-8.5); NEUTROPHILS % 42.8 % (36.0-66.0); PLATELET COUNT, AUTOMATED 194 10^3/uL (150-450)
[2024-10-09 23:10] LABS: INR 0.97
[2024-10-09 23:14] LABS: AMPHETAMINES LEVEL URINE NEGATIVE (NEGATIVE); BARBITURATES URINE NEGATIVE (NEGATIVE); BENZODIAZEPINES URINE NEGATIVE (NEGATIVE); CANNABINOIDS URINE NEGATIVE (NEGATIVE); COCAINE METABOLITE URINE NEGATIVE (NEGATIVE); METHADONE URINE NEGATIVE (NEGATIVE); OPIATES URINE NEGATIVE (NEGATIVE); PHENCYCLIDINE URINE NEGATIVE (NEGATIVE)
[2024-10-09 23:15] LABS: ETHYL ALCOHOL (ETHANOL) 0.232 % (0.000-0.010)
[2024-10-09 23:17] LABS: ALT/SGPT 49 U/L (7.0-40); AST/SGOT 59 U/L (<34); CALCIUM LEVEL 7.5 MG/DL (8.5-10.1); CARBON DIOXIDE LEVEL 23 MMOL/L (20-31); CHLORIDE LEVEL 109 MMOL/L (98-107); CREATININE FOR GFR 0.46 MG/DL (0.55-1.30); GLOMERULAR FILTRATION RATE > 90.0 (>58); MAGNESIUM LEVEL 1.5 MG/DL (1.8-2.4); POTASSIUM SERUM 3.6 MMOL/L (3.5-5.1); SODIUM LEVEL 146 MMOL/L (136-145)
[2024-10-09] MEDS: CALCIUM GLUCONATE 1,000 MG in DEXTROSE 5% (D5W) MINI-BAG PLU 100 ML IV ONE (23:33)
[2024-10-09] MEDS: MAG SULF 1GM/100ML (MAG RUN) 1 GM in IV 1 EA IV ONE (23:34)
[2024-10-09 23:40] VITALS: BP 109/63; O2SAT 97
[2024-10-10] VITALS (7 sets, daily range): BP systolic 129–162; BP diastolic 72–86; TEMP 97.6; O2SAT 95–100
[2024-10-10] MEDS ORDERED: NICOTINE 21 MG/24 HR 1 EA TRANSDERMAL TD PRN (02:40)
[2024-10-10] MEDS: LR 1,000 ML IV SCH (03:24)
[2024-10-10] MEDS: THIAMINE 100 MG TAB PO SCH (03:32)
[2024-10-10 07:26] LABS: PLATELET COUNT, AUTOMATED 173 10^3/uL (150-450)
[2024-10-10] MEDS ORDERED: HOME MED LIST COMPLETE! XX SCH (08:05)
[2024-10-10] MEDS: ENOXAPARIN 40 MG/0.4 ML SYRINGE (J1650 PER 10MG) SC SCH (09:00)
[2024-10-10 09:23] LABS: ESTIMATED AVERAGE GLUCOSE 103.0 MG/DL (60-110)
[2024-10-10] MEDS: MULTIVITAMINS/MINERALS THERAP 1 TAB PO SCH (09:27)
[2024-10-10] MEDS: FOLIC ACID 1 MG TAB PO SCH (09:27)
[2024-10-10 09:48] LABS: ALT/SGPT 59 U/L (7.0-40); AST/SGOT 78 U/L (<34); CALCIUM LEVEL 8.6 MG/DL (8.5-10.1); CARBON DIOXIDE LEVEL 21 MMOL/L (20-31); CHLORIDE LEVEL 105 MMOL/L (98-107); CHOLESTEROL LEVEL 182 MG/DL (<200); CHOLESTEROL RISK RATIO 2.45 (<5); CREATININE FOR GFR 0.52 MG/DL (0.55-1.30); GLOMERULAR FILTRATION RATE > 90.0 (>58); LDL CHOLESTEROL 87.8 MG/DL (<100); MAGNESIUM LEVEL 1.6 MG/DL (1.8-2.4); NON-HDL-C 107.8 MG/DL; POTASSIUM SERUM 4.7 MMOL/L (3.5-5.1); SODIUM LEVEL 140 MMOL/L (136-145); TRIGLYCERIDES LEVEL 100 MG/DL (<150)
[2024-10-10] MEDS: CALCIUM CARBONATE 500 MG CHEW U/D PO SCH (18:00)
[2024-10-10] MEDS: DICLOFENAC EPOLAMINE 1.3% PATCH TOP SCH (20:52)
[2024-10-10] MEDS: MAGNESIUM OXIDE 400 MG TAB PO SCH (20:52)
[2024-10-11] VITALS (10 sets, daily range): BP systolic 130–141; BP diastolic 76–84; TEMP 96.9–98.5; O2SAT 96–100
[2024-10-11] MEDS ORDERED: THIA100TA PO (05:10)
[2024-10-11] MEDS ORDERED: THERTAB19 PO (05:10)
[2024-10-11] MEDS ORDERED: FOLI1TAB11 PO (05:10)
[2024-10-11] MEDS ORDERED: DICL1PAT6 TOP (05:10)
[2024-10-11] MEDS ORDERED: NICO21PAT TD (05:10)
[2024-10-11 05:35] LABS: PLATELET COUNT, AUTOMATED 159 10^3/uL (150-450)
[2024-10-11 06:39] LABS: HEPATITIS C VIRUS ABY INDEX 0.03 INDEX (<0.8)
[2024-10-11 06:45] LABS: ALT/SGPT 41 U/L (7.0-40); AST/SGOT 40 U/L (<34); CALCIUM LEVEL 8.7 MG/DL (8.5-10.1); CARBON DIOXIDE LEVEL 31 MMOL/L (20-31); CHLORIDE LEVEL 101 MMOL/L (98-107); CREATININE FOR GFR 0.64 MG/DL (0.55-1.30); GLOMERULAR FILTRATION RATE > 90.0 (>58); MAGNESIUM LEVEL 1.8 MG/DL (1.8-2.4); POTASSIUM SERUM 4.3 MMOL/L (3.5-5.1); SODIUM LEVEL 139 MMOL/L (136-145)
[2024-10-11] MEDS ORDERED: BENG1CRE TOP (11:24)
[2024-10-14 11:18] LABS: PERCENT CDT 2.1 % (<2.5)
== END 2024-10-11 11:56 | disposition home or self-care (01) ==
LOC: M ED 21:29 → M ED INP 21:30 → M PCU 10-10 14:34
PROVIDERS: ADMIT Family Medicine; ATTEND Family Medicine
DX: F10.229 Alcohol dependence with intoxication, unspecified (principal); E83.51 Hypocalcemia; R20.0 Anesthesia of skin; M48.02 Spinal stenosis, cervical region; F33.1 Major depressive disorder, recurrent, moderate; F41.9 Anxiety disorder, unspecified; E83.42 Hypomagnesemia; R47.01 Aphasia; F10.230 Alcohol dependence with withdrawal, uncomplicated; M16.11 Unilateral primary osteoarthritis, right hip; M75.31 Calcific tendinitis of right shoulder; M76.891 Other specified enthesopathies of right lower limb, excluding foot; M25.551 Pain in right hip; F17.210 Nicotine dependence, cigarettes, uncomplicated; G43.909 Migraine, unspecified, not intractable, without status migrainosus; F07.81 Postconcussional syndrome; M50.123 Cervical disc disorder at C6-C7 level with radiculopathy; G47.00 Insomnia, unspecified; Z87.440 Personal history of urinary (tract) infections; M22.40 Chondromalacia patellae, unspecified knee; R45.851 Suicidal ideations; Z90.79 Acquired absence of other genital organ(s); F14.90 Cocaine use, unspecified, uncomplicated; Z91.148 Patient's other noncompliance with medication regimen for other reason; Z91.51 Personal history of suicidal behavior; Z82.49 Family history of ischemic heart disease and other diseases of the circulatory system; Z83.42 Family history of familial hypercholesterolemia; Z80.3 Family history of malignant neoplasm of breast; Z80.1 Family history of malignant neoplasm of trachea, bronchus and lung; Z88.8 Allergy status to other drugs, medicaments and biological substances; Z79.899 Other long term (current) drug therapy
CPT/HCPCS: 36415; 70450; 70496; 70498; 70551; 71045; 72141; 73030; 73502; 80047; 80048; 80053; 80061; 80074; 80076; 80307; 82077; 82330; 82373; 83036; 83735; 84466; 85025; 85027; 85610; 85730; 86850; 86900; 86901; 93005; 93041; 93306; 94760; 96361; 96372; 96374; 96375; 97161; 99285; J0612; J1650; J3475; Q9967

== ENCOUNTER → 2024-10-24 | Outpatient (CLI) | payer OTHER ==
[~2024-10-24] MED LIST changes: +BENG1CRE TOP; +DICL1PAT6 TOP; +NICO21PAT TD; +THERTAB19 PO; +THIA100TA PO
== END ==
LOC: M WHC 12:49
PROVIDERS: ATTEND Family Medicine
DX: N63.11 Unspecified lump in the right breast, upper outer quadrant (principal); R92.333 Mammographic heterogeneous density, bilateral breasts

== ENCOUNTER → 2024-10-24 | Outpatient (CLI) | payer OTHER ==
[2024-10-24 15:56] LABS: ESTIMATED AVERAGE GLUCOSE 103.0 MG/DL (60-110)
[2024-10-24 16:18] LABS: IRON (FE) 199.0 UG/DL (50-170); PERCENT SATURATION 65.5 % (13.2-45.0)
[2024-10-24 16:21] LABS: TOTAL 25(OH) VITAMIN D 30.0 NG/ML (20.0-100.0); VITAMIN B12 LEVEL 574.0 PG/ML (211-911)
[2024-10-24 16:22] LABS: PTH INTACT 18.6 PG/ML (18.5-88.0)
[2024-10-26 07:52] LABS: PROTEIN, TOTAL SO 7.5 g/dL (6.1-8.1)
[2024-10-26 11:08] LABS: INSULIN LEVEL 7.0 uIU/mL (<=18.4)
[2024-10-28 11:32] LABS: RBC FOLATE 495.0 NG/ML (280-791)
== END ==
LOC: M PLALAB 12:51
PROVIDERS: ATTEND Family Medicine
DX: D75.1 Secondary polycythemia (principal); R73.01 Impaired fasting glucose; E55.9 Vitamin D deficiency, unspecified; E53.8 Deficiency of other specified B group vitamins

== ENCOUNTER 2025-02-23 14:11 | Inpatient (IN) | payer OTHER ==
[~2025-02-23] VITALS: Ht 165.1 cm; Wt 71.8 kg
[~2025-02-23 14:11] MED LIST changes: -IBUP-1022 PO; +IBUP600T42 PO; +RISP-39 PO; -RISP3TAB20 PO
[2025-02-23] MEDS: ONDANSETRON 4MG/2ML VIAL IV ONE (15:24)
[2025-02-23] MEDS: MORPHINE 4 MG/ML 1 ML VIAL IV PRN (15:24)
[2025-02-23 16:07] LABS: BASO # 0.0 10^3/uL (0.0-0.2); BASO % 0.4 % (0.0-1.0); EOS # 0.1 10^3/uL (0.0-0.5); EOS % 0.6 % (0.0-3.0); LYMPH # 0.7 10^3/uL (1.5-5.0); LYMPH % 6.2 % (24.0-44.0); MONO # 0.8 10^3/uL (0.0-0.8); MONO % 6.7 % (2.0-8.0); NEUTROPHILS # 9.6 10^3/uL (1.5-8.5); NEUTROPHILS % 85.4 % (36.0-66.0); PLATELET COUNT, AUTOMATED 212 10^3/uL (150-450)
[2025-02-23 16:33] LABS: ETHYL ALCOHOL (ETHANOL) < 0.003 % (0.000-0.010)
[2025-02-23 16:34] LABS: ALT/SGPT 40 U/L (7.0-40); AST/SGOT 30 U/L (<34); CALCIUM LEVEL 9.8 MG/DL (8.5-10.1); CARBON DIOXIDE LEVEL 26 MMOL/L (20-31); CHLORIDE LEVEL 100 MMOL/L (98-107); CREATININE FOR GFR 0.45 MG/DL (0.55-1.30); GLOMERULAR FILTRATION RATE > 90.0 (>58); POTASSIUM SERUM 3.4 MMOL/L (3.5-5.1); SODIUM LEVEL 139 MMOL/L (136-145)
[2025-02-23] MEDS: GASTROGRAFIN SOLUTION 30ML PO SCH (17:38)
[2025-02-23] MEDS ORDERED: ISOVUE-370 76% 100 ML VIAL As Ordered ONE (17:54)
[2025-02-23] MEDS ORDERED: TIZA1TAB12 PO (19:43)
[2025-02-23] MEDS ORDERED: HOME MED LIST COMPLETE! XX SCH (19:45)
[2025-02-23] MEDS: LR 1,000 ML IV SCH (19:51)
[2025-02-23] MEDS: THIAMINE 100 MG TAB PO SCH (19:52)
[2025-02-23] MEDS: NICOTINE 21 MG/24 HR 1 EA TRANSDERMAL TD ONE (19:52)
[2025-02-23 20:47] VITALS: BP 182/96; TEMP 98.4; O2SAT 99
[2025-02-23 20:50] VITALS: BP 182/96
[2025-02-23] MEDS: **hydrALAZINE** 10 MG TAB PO ONE (22:04)
[2025-02-23] MEDS: MORPHINE 2 MG/ML 1 ML VIAL IV PRN (22:05)
[2025-02-24 04:06] VITALS: BP 184/96; TEMP 98.3; O2SAT 98
[2025-02-24 04:08] VITALS: BP 184/96
[2025-02-24 06:59] LABS: PLATELET COUNT, AUTOMATED 175 10^3/uL (150-450)
[2025-02-24 07:23] LABS: CALCIUM LEVEL 9.0 MG/DL (8.5-10.1); CARBON DIOXIDE LEVEL 28 MMOL/L (20-31); CHLORIDE LEVEL 96 MMOL/L (98-107); CREATININE FOR GFR 0.43 MG/DL (0.55-1.30); GLOMERULAR FILTRATION RATE > 90.0 (>58); MAGNESIUM LEVEL 1.3 MG/DL (1.8-2.4); POTASSIUM SERUM 3.4 MMOL/L (3.5-5.1); SODIUM LEVEL 135 MMOL/L (136-145)
[2025-02-24] MEDS: ENOXAPARIN 40 MG/0.4 ML SYRINGE (J1650 PER 10MG) SC SCH (09:00)
[2025-02-24] MEDS: MULTIVITAMINS/MINERALS THERAP 1 TAB PO SCH (09:02)
[2025-02-24] MEDS: FOLIC ACID 1 MG TAB PO SCH (09:02)
[2025-02-24] MEDS: MORPHINE 2 MG/ML 1 ML VIAL IV PRN (09:02)
[2025-02-24] MEDS ORDERED: **hydrALAZINE HCL** 25 MG TAB PO PRN (10:45)
[2025-02-24] MEDS: ONDANSETRON 4MG/2ML VIAL IV PRN (11:00)
[2025-02-24] MEDS: HYDROMORPHONE HCL 0.5 MG/0.5 ML SYRINGE IV PRN ×2 (11:01→23:51)
[2025-02-24] MEDS: LR 1,000 ML IV SCH (11:02)
[2025-02-24] MEDS: MAG SULF 1GM/100ML (MAG RUN) 1 GM in IV 1 EA IV SCH (11:02)
[2025-02-24 11:58] VITALS: BP 159/95
[2025-02-24 12:00] VITALS: BP 159/95; TEMP 98.9; O2SAT 100
[2025-02-24] MEDS: KCL 20MEQ IN D5/NS 1000ML 1,000 ML IV SCH (13:21)
[2025-02-24 18:55] VITALS: BP 167/90; TEMP 98.9; O2SAT 99
[2025-02-24 23:25] VITALS: BP 167/90
[2025-02-24] MEDS: METOPROLOL SUCC. 25 MG *XL* TAB PO SCH (23:47)
[2025-02-25] VITALS (9 sets, daily range): BP systolic 138–159; BP diastolic 78–92; TEMP 98–99.7; O2SAT 98–100
[2025-02-25 05:44] LABS: BASO # 0.1 10^3/uL (0.0-0.2); BASO % 0.4 % (0.0-1.0); EOS # 0.3 10^3/uL (0.0-0.5); EOS % 2.5 % (0.0-3.0); LYMPH # 1.1 10^3/uL (1.5-5.0); LYMPH % 8.3 % (24.0-44.0); MONO # 0.7 10^3/uL (0.0-0.8); MONO % 5.4 % (2.0-8.0); NEUTROPHILS # 11.3 10^3/uL (1.5-8.5); NEUTROPHILS % 83.1 % (36.0-66.0); PLATELET COUNT, AUTOMATED 182 10^3/uL (150-450)
[2025-02-25 06:08] LABS: ALT/SGPT 22 U/L (7.0-40); AST/SGOT 17 U/L (<34); CALCIUM LEVEL 8.3 MG/DL (8.5-10.1); CARBON DIOXIDE LEVEL 29 MMOL/L (20-31); CHLORIDE LEVEL 102 MMOL/L (98-107); CREATININE FOR GFR 0.53 MG/DL (0.55-1.30); GLOMERULAR FILTRATION RATE > 90.0 (>58); MAGNESIUM LEVEL 1.7 MG/DL (1.8-2.4); POTASSIUM SERUM 4.0 MMOL/L (3.5-5.1); SODIUM LEVEL 138 MMOL/L (136-145)
[2025-02-25] MEDS: LR 1,000 ML IV ONE (10:20)
[2025-02-25] MEDS: MAG SULF 1GM/100ML (MAG RUN) 1 GM in IV 1 EA IV ONE (11:39)
[2025-02-26] VITALS (13 sets, daily range): BP systolic 130–168; BP diastolic 74–90; TEMP 97–99.8; O2SAT 98–100
[2025-02-26 06:26] LABS: BASO # 0.0 10^3/uL (0.0-0.2); BASO % 0.3 % (0.0-1.0); EOS # 0.2 10^3/uL (0.0-0.5); EOS % 2.1 % (0.0-3.0); LYMPH # 1.2 10^3/uL (1.5-5.0); LYMPH % 10.6 % (24.0-44.0); MONO # 0.9 10^3/uL (0.0-0.8); MONO % 8.0 % (2.0-8.0); NEUTROPHILS # 8.7 10^3/uL (1.5-8.5); NEUTROPHILS % 78.6 % (36.0-66.0); PLATELET COUNT, AUTOMATED 186 10^3/uL (150-450)
[2025-02-26 06:53] LABS: CALCIUM LEVEL 8.3 MG/DL (8.5-10.1); CARBON DIOXIDE LEVEL 25 MMOL/L (20-31); CHLORIDE LEVEL 104 MMOL/L (98-107); CREATININE FOR GFR 0.44 MG/DL (0.55-1.30); GLOMERULAR FILTRATION RATE > 90.0 (>58); MAGNESIUM LEVEL 1.9 MG/DL (1.8-2.4); POTASSIUM SERUM 4.0 MMOL/L (3.5-5.1); SODIUM LEVEL 136 MMOL/L (136-145)
[2025-02-26] MEDS ORDERED: HYDROMORPHONE HCL 0.5 MG/0.5 ML SYRINGE IV PRN (11:50)
[2025-02-26] MEDS ORDERED: PERCOCET 5MG/325MG TAB PO PRN (11:50)
[2025-02-26] MEDS ORDERED: PILL CUTTER 1 EACH XX ONE (13:23)
[2025-02-26] MEDS: NS (Normal Saline) 0.9% 1,000 ML IV SCH (13:30)
[2025-02-26] MEDS: amLODIPine 10 MG TAB PO SCH (13:30)
[2025-02-26] MEDS: OXAZEPAM 15MG CAP PO SCH (21:21)
[2025-02-27] VITALS (12 sets, daily range): BP systolic 119–164; BP diastolic 70–91; TEMP 96.9–98.5; O2SAT 98–100
[2025-02-27] MEDS ORDERED: PHENobarbital 65MG/ML 1ML VIAL IV ONE (05:00)
[2025-02-27] MEDS: THIAMINE INJection 500 MG in NS 100 ML IV SCH (05:57)
[2025-02-27 06:29] LABS: BASO # 0.1 10^3/uL (0.0-0.2); BASO % 0.5 % (0.0-1.0); EOS # 0.3 10^3/uL (0.0-0.5); EOS % 2.9 % (0.0-3.0); LYMPH # 1.2 10^3/uL (1.5-5.0); LYMPH % 12.6 % (24.0-44.0); MONO # 1.1 10^3/uL (0.0-0.8); MONO % 12.4 % (2.0-8.0); NEUTROPHILS # 6.6 10^3/uL (1.5-8.5); NEUTROPHILS % 70.9 % (36.0-66.0); PLATELET COUNT, AUTOMATED 221 10^3/uL (150-450)
[2025-02-27 06:46] LABS: CALCIUM LEVEL 8.8 MG/DL (8.5-10.1); CARBON DIOXIDE LEVEL 24 MMOL/L (20-31); CHLORIDE LEVEL 106 MMOL/L (98-107); CREATININE FOR GFR 0.45 MG/DL (0.55-1.30); GLOMERULAR FILTRATION RATE > 90.0 (>58); MAGNESIUM LEVEL 1.6 MG/DL (1.8-2.4); POTASSIUM SERUM 3.9 MMOL/L (3.5-5.1); SODIUM LEVEL 139 MMOL/L (136-145)
[2025-02-27] MEDS: chlordiazePOXIDE 25 MG CAP PO SCH (08:25)
[2025-02-27] MEDS: OXAZEPAM 15MG CAP PO SCH ×2 (08:25→23:37)
[2025-02-27] MEDS ORDERED: MORPHINE 2 MG/ML 1 ML VIAL IV PRN (10:35)
[2025-02-27] MEDS ORDERED: hydrALAZINE 20 MG/ML 1 ML VIAL IV PRN (10:45)
[2025-02-27] MEDS: MAG SULF 1GM/100ML (MAG RUN) 1 GM in IV 1 EA IV SCH (11:57)
[2025-02-28] MEDS: PERCOCET 5MG/325MG TAB PO PRN (02:02)
[2025-02-28 05:43] LABS: BASO # 0.1 10^3/uL (0.0-0.2); BASO % 0.9 % (0.0-1.0); EOS # 0.3 10^3/uL (0.0-0.5); EOS % 4.9 % (0.0-3.0); LYMPH # 1.5 10^3/uL (1.5-5.0); LYMPH % 23.3 % (24.0-44.0); MONO # 1.0 10^3/uL (0.0-0.8); MONO % 15.9 % (2.0-8.0); NEUTROPHILS # 3.6 10^3/uL (1.5-8.5); NEUTROPHILS % 54.7 % (36.0-66.0); PLATELET COUNT, AUTOMATED 235 10^3/uL (150-450)
[2025-02-28 06:10] LABS: CALCIUM LEVEL 8.2 MG/DL (8.5-10.1); CARBON DIOXIDE LEVEL 25 MMOL/L (20-31); CHLORIDE LEVEL 111 MMOL/L (98-107); CREATININE FOR GFR 0.45 MG/DL (0.55-1.30); GLOMERULAR FILTRATION RATE > 90.0 (>58); MAGNESIUM LEVEL 1.7 MG/DL (1.8-2.4); POTASSIUM SERUM 3.9 MMOL/L (3.5-5.1); SODIUM LEVEL 143 MMOL/L (136-145)
[2025-02-28 06:21] VITALS: BP 132/79; TEMP 97.5; O2SAT 98
[2025-02-28] MEDS: MAG SULF 1GM/100ML (MAG RUN) 1 GM in IV 1 EA IV SCH (08:56)
[2025-02-28 12:00] VITALS: BP 140/81; TEMP 97.6; O2SAT 98
[2025-02-28 20:05] VITALS: BP 130/70; TEMP 97.6; O2SAT 96
[2025-02-28] MEDS: chlordiazePOXIDE 25 MG CAP PO SCH (21:05)
[2025-02-28] MEDS ORDERED: OXAZEPAM 15MG CAP PO SCH (23:00)
[2025-03-01 03:54] VITALS: BP 129/60; TEMP 97.9; O2SAT 98
[2025-03-01 06:46] LABS: PLATELET COUNT, AUTOMATED 269 10^3/uL (150-450)
[2025-03-01 07:05] LABS: CALCIUM LEVEL 8.3 MG/DL (8.5-10.1); CARBON DIOXIDE LEVEL 25 MMOL/L (20-31); CHLORIDE LEVEL 109 MMOL/L (98-107); CREATININE FOR GFR 0.50 MG/DL (0.55-1.30); GLOMERULAR FILTRATION RATE > 90.0 (>58); MAGNESIUM LEVEL 1.6 MG/DL (1.8-2.4); POTASSIUM SERUM 4.0 MMOL/L (3.5-5.1); SODIUM LEVEL 143 MMOL/L (136-145)
[2025-03-01] MEDS: NICOTINE 21 MG/24 HR 1 EA TRANSDERMAL TD SCH (08:36)
[2025-03-01] MEDS: MAG SULF 1GM/100ML (MAG RUN) 1 GM in IV 1 EA IV SCH (08:43)
[2025-03-01 09:08] VITALS: BP 142/86; O2SAT 100
== END 2025-03-01 10:54 | disposition home or self-care (01) | DRG 282 ==
LOC: M ED 14:11 → M ED INP 19:23 → M MSPAV 20:38 → M PCU 02-26 22:31
PROVIDERS: ADMIT Student in an Organized Health Care Education/Training Program; ATTEND Internal Medicine
DX: K85.20 Alcohol induced acute pancreatitis without necrosis or infection (principal); M48.02 Spinal stenosis, cervical region; F10.230 Alcohol dependence with withdrawal, uncomplicated; F17.200 Nicotine dependence, unspecified, uncomplicated; G43.909 Migraine, unspecified, not intractable, without status migrainosus; F31.9 Bipolar disorder, unspecified; Z71.6 Tobacco abuse counseling; Z71.41 Alcohol abuse counseling and surveillance of alcoholic; I16.9 Hypertensive crisis, unspecified; Z79.899 Other long term (current) drug therapy; Z88.8 Allergy status to other drugs, medicaments and biological substances